=== PATIENT | female | born 1955 | race Caucasian/White ===

== ENCOUNTER → 2016-12-01 | Outpatient (CLI) | payer OTHER ==
--- NOTE | 2016-12-01 17:03 | MR ---
EXAMINATION TYPE: MR sacroiliac joints wo con DATE OF EXAM: 12/01/2016 4:31 PM COMPARISON: NONE HISTORY: Left Hip and Low Back and sacroiliac joint Pain Standard multiplanar, multisequence MRI departmental protocol Multiplanar, multisequence images of the pelvis focusing on the sacroiliac joints were acquired. FINDINGS: Sacroiliac joints appear symmetric and felt within normal limits. No suspicious edema is se en in the adjacent sacrum marrow iliac bones bilaterally. Bone marrow signal intensity is maintained. Visualized portion of sacrum shows no suspicious edema. Sacral alar intact bilaterally. Visualized portion of bladder is unremarkable. There is some prominence of fecal material in the sigm oid rectal colon. Within the visualized portion of uterus there is 2.3 cm low intense structure on ax ial image 1 consistent with intrauterine fibroid. Visualized portion of both ovaries is unremarkable. Tiny pelvic fluid collection is seen on axial image 1 in the cul-de-sac. IMPRESSION: Sacroiliac joints are within normal limits. Incidental note is made of 2.3 cm intrauterine fibroid an d moderate distal colonic fecal stasis.
--- NOTE | 2016-12-02 08:19 | MR ---
EXAMINATION TYPE: MR hip LT wo con DATE OF EXAM: 12/01/2016 4:31 PM COMPARISON: NONE HISTORY: Left Hip and Low Back Pain Standard multiplanar, multisequence MRI departmental protocol Multiplanar, multisequence images of the pelvis focusing on left hip were acquired. FINDINGS: Bone marrow signal intensity in the visualized pelvis including both proximal femurs appear s maintained. There are small to moderate-sized symmetric hip joint effusions noted bilaterally. Femo ral head shape is maintained. No significant spurring is seen. There is small subchondral cyst in the superior labrum right hip on coronal image 8. Increased fluid signal level of greater trochanter on the left is present on coronal image 8 confirme d on axial image 9. There is more focal 1.1 cm fluid collection anterior to this on axial image 10. N o suspicious fluid signal seen at level of lesser trochanter. No discrete labral tear is seen given l imitation of nonarthrogram study. Muscle bulk in left thigh is felt within normal limits and symmetric to opposite right side. No suspi cious groin adenopathy is present. No bowel or fat-containing inguinal hernia is seen bilaterally. Small moderate free fluid is seen in pelvis on axial image 18. There is 2.4 cm intramural fibroid not ed on axial image 18. IMPRESSION: Moderate to severe left-sided greater trochanteric bursitis.
== END | disposition home or self-care (01) ==
LOC: RADMRIMAIN 15:15
PROVIDERS: ATTEND Surgery Plastic and Reconstructive Surgery
DX: C47.2 Malignant neoplasm of peripheral nerves of lower limb, including hip (principal); M70.62 Trochanteric bursitis, left hip
CPT/HCPCS: 72195

== ENCOUNTER 2016-12-25 07:00 | Day surgery (SDC) | payer OTHER ==
[2016-12-23 13:11] VITALS: BMI 26.7
[~2016-12-25 07:00] MED LIST: LACTATED RINGERS 1,000 ML IV SCH
--- NOTE | 2016-12-25 07:23 | P.GSHP ---
History of Present Illness H&P Date: 12/25/16 CHIEF COMPLAINT: GERD HISTORY OF PRESENT ILLNESS: The patient is a 61-year-old female who presents reports gastroesophageal reflux disease. Upper endoscopy was offered for further evaluation and management. PAST MEDICAL HISTORY: Please see list. PAST SURGICAL HISTORY: Please see list. MEDICATIONS: Please see list. ALLERGIES: Please see list. SOCIAL HISTORY: No illicit drug use FAMILY HISTORY: No reports of Crohn disease or ulcerative colitis. REVIEW OF ORGAN SYSTEMS: CONSTITUTIONAL: No reports of fevers or chills. GI: Denies any blood in stools or constipation. PHYSICAL EXAM: VITAL SIGNS: Stable GENERAL: Well-developed and pleasant in no acute distress. HEENT: No scleral icterus. Extraocular movements grossly intact. Moist buccal mucosa. NECK: Supple without lymphadenopathy. CHEST: Unlabored respirations. Equal bilateral excursions. CARDIOVASCULAR: Regular rate and rhythm. Distal 2+ pulses. ABDOMEN: Soft, nondistended. MUSCULOSKELETAL: No clubbing, cyanosis, or edema. ASSESSMENT: 1. Gastroesophageal reflux disease PLAN: 1. Recommend proceeding with an upper endoscopy Past Medical History Past Medical History: Atrial Fibrillation Additional Past Medical History / Comment(s): ANEMIA, SOB WITH ACTIVITY, past hx. of a fib but not current, occasional epigastric pain, irritating cough History of Any Multi-Drug Resistant Organisms: None Reported Past Surgical History: Bariatric Surgery, Uterine Ablation Additional Past Surgical History / Comment(s): GASTRIC BYPASS, TUMMY TUCK, PARATHYROID removed, repair of hiatal hernia @[facility] 2016 Past Anesthesia/Blood Transfusion Reactions: Postoperative Nausea & Vomiting ( PONV) Past Psychological History: ADD/ADHD, Anxiety, Bipolar, Depression Additional Psychological History / Comment(s): borderline personality disorder Smoking Status: Never smoker Past Alcohol Use History: None Reported Past Drug Use History: None Reported - Past Family History Mother Family Medical History: COPD, Deep Vein Thrombosis (DVT), Myocardial Infarction ([place]) Medications and Allergies Home Medications Medication Instructions Recorded Confirmed Type DULoxetine HCL [Cymbalta] 120 mg PO HS 01/24/14 12/23/16 History Dextroamphetamine/Amphetamine 40 mg PO DAILY 01/24/14 12/23/16 History [Adderall] LORazepam [Ativan] 1 mg PO HS PRN 01/24/14 12/23/16 History QUEtiapine FUMARATE [SEROquel XR] 300 mg PO HS 01/24/14 12/23/16 History lamoTRIgine [LaMICtal] 200 mg PO BID 01/24/14 12/23/16 History Ergocalciferol (Vitamin D2) 50,000 unit PO WEEKLY 12/23/16 12/23/16 History [Vitamin D2] Allergies Allergy/AdvReac Type Severity Reaction Status Date / Time furosemide Allergy Unknown Rash/Hives Verified 12/23/16 12:27 diphenhydramine Allergy Dyspnea Verified 12/23/16 12:28
[2016-12-25 08:11] VITALS: TEMP 97.6
[2016-12-25] MEDS ORDERED: PROPOFOL 10 MG/ML 20 ML VIAL IV ONE (08:56)
--- NOTE | 2016-12-25 09:22 | P.PCN ---
Date of Procedure: 12/25/16 Description of Procedure: PREOPERATIVE DIAGNOSES: 1. Epigastric abdominal pain. 2. Nausea and vomiting. 3. History of Cody-en-Y gastric bypass 4. Dysphagia. POSTOPERATIVE DIAGNOSES: 1. Epigastric abdominal pain. 2. Nausea and vomiting. 3. History of Cody-en-Y gastric bypass 4. Esophageal dysmotility. 5. Dysphagia. PROCEDURE PERFORMED: Esophagogastrojejunoscopy. SURGEON: Shae Culver MD ANESTHESIA: MAC. INDICATIONS: The patient is a 61-year-old female with prior history of Cody-en-Y gastric bypass perform an outside institution. She presents with intermittent nausea and vomiting, particularly of the epigastric abdominal pain and dysphagia. With her history of Cody-en-Y gastric bypass, upper endoscopy was offered for further evaluation and management. Benefits and risks described. Informed consent was obtained. DESCRIPTION: Patient was brought to the endoscopy suite and laid in the left lateral decubitus position. After adequate IV sedation, a bite block was placed. An Olympus gastroscope was passed along the posterior oropharynx down to the distal esophagus where the squamocolumnar junction was found at approximately 35 cm from the incisors. Moderate dilated and tortuous esophagus was identified consistent with esophageal dysmotility. Tight entry along the lower esophageal sphincter was identified. The diaphragmatic hiatus was found at 38 cm from the incisors. Her anastomosis was found at 40 cm. Retained suture was found along the remnant of a very small gastric pouch. No gastrojejunal ulceration was encountered. The scope was passed to 60 cm of the Cody limb. The GI tract was desufflated. The patient tolerated the procedure well. FINDINGS: 1. Dilated and tortuous esophagus consistent with esophageal dysmotility. 2. Retained suture along remnant gastric pouch. 3. No acute gastrojejunal ulceration. 4. Hypertonic lower esophageal sphincter highly suspicious for hypertensive LES or achalasia. 5. Retained food along the remnant gastric pouch. PLAN: 1. Recommend immediate esophagram for high suspicion for esophageal dysmotility. 2. Upper endoscopy as needed. Plan - Discharge Summary Discharge Medication List DULoxetine HCL [Cymbalta] 120 mg PO HS 01/24/14 [History] Dextroamphetamine/Amphetamine [Adderall] 40 mg PO DAILY 01/24/14 [History] LORazepam [Ativan] 1 mg PO HS PRN 01/24/14 [History] QUEtiapine FUMARATE [SEROquel XR] 300 mg PO HS 01/24/14 [History] lamoTRIgine [LaMICtal] 200 mg PO BID 01/24/14 [History] Ergocalciferol (Vitamin D2) [Vitamin D2] 50,000 unit PO WEEKLY 12/23/16 [History ] Follow up Appointment(s)/Referral(s): Shae Culver MD [STAFF PHYSICIAN] - 12/29/16 Patient Instructions/Handouts: *[facility] - (Anesthesia) Endoscopy Discharge Instructions, Upper Endoscopy (DC), Chronic Dysphagia (GEN), Esophageal Spasm ( GEN) Discharge Disposition: HOME SELF-CARE
[2016-12-25 09:35] VITALS: BP 105/56; PULSE 54; RESP 18
--- NOTE | 2016-12-25 11:26 | FL ---
EXAMINATION TYPE: FL esophagus cervic/pharynx DATE OF EXAM: 12/25/2016 10:58 AM CLINICAL HISTORY: Dysphagia, achalasia COMPARISON: 01/26/2014 Contrast: Omnipaque 350 50 mL The patient ingested contrast without difficulty or delay. Esophagus is free of extrinsic or intrinsi c mass effect. There is No evidence for esophagitis. There is evidence of hiatal hernia with proximal component of the patient's gastric pouch residing above the level of the diaphragm. This is a new fi nding. There is resultant moderate reflux noted. IMPRESSION: 1. Interval development of hiatal hernia with a portion of the patient's gastric pouch residing above the level of the diaphragm with resultant reflux.
== END 2016-12-25 10:01 | disposition home or self-care (01) ==
LOC: ORWHC2ENDO 07:00
PROVIDERS: ATTEND Surgery Plastic and Reconstructive Surgery
DX: K22.4 Dyskinesia of esophagus (principal); K44.9 Diaphragmatic hernia without obstruction or gangrene; Z98.84 Bariatric surgery status; K21.9 Gastro-esophageal reflux disease without esophagitis; K22.0 Achalasia of cardia; F90.9 Attention-deficit hyperactivity disorder, unspecified type; F41.9 Anxiety disorder, unspecified; F31.9 Bipolar disorder, unspecified; F60.3 Borderline personality disorder; Z79.899 Other long term (current) drug therapy; Z88.8 Allergy status to other drugs, medicaments and biological substances
CPT/HCPCS: 74210; 43235; J2704; 71260

== ENCOUNTER → 2016-12-25 | Outpatient (CLI) | payer OTHER ==
--- NOTE | 2016-12-25 08:14 | CT ---
EXAMINATION TYPE: CT chest w con DATE OF EXAM: 12/25/2016 7:42 AM COMPARISON: NONE HISTORY: Lung nodule CT DLP: 317 mGycm Automated exposure control for dose reduction was used. CONTRAST: CT scan of the chest is performed with IV Contrast, patient injected with 100 mL of Omnipaque 300. Th ere is some dependent atelectasis at the lung bases. No parenchymal nodule is seen. There is no significant axillary, internal mammary or mediastinal adenopathy. There is a 3.2 x 2.4 x 5.8 cm mass adjacent to the left hilum. This has a mean Hounsfield value of 16 .4 which is nonspecific. A pericardial cyst or bronchogenic cyst could cause this. Adenopathy is not excluded. This is having some mass effect upon the left upper lobe pulmonary artery. There is no pleu ral or pericardial fluid. The heart is not enlarged. There is been a previous gastric stapling. There is a moderate hiatal hernia. There is fatty infiltration of the liver. Visualized portions of the upper abdomen are otherwise unre markable. No acute osseous lesion is seen. IMPRESSION: 1. 2.2 X 2.4 X 5.8 CM MASS ADJACENT TO THE LEFT HILUM. PERICARDIAL CYST VERSUS BRONCHOGENIC CYST IS F AVORED OVER ADENOPATHY. 2. POSTSURGICAL CHANGE. 3. FATTY INFILTRATION OF THE LIVER.
== END | disposition home or self-care (01) ==
LOC: RADCTMAIN 07:16
PROVIDERS: ATTEND Surgery Plastic and Reconstructive Surgery
DX: R91.8 Other nonspecific abnormal finding of lung field (principal); K76.0 Fatty (change of) liver, not elsewhere classified
CPT/HCPCS: 71260; Q9967

== ENCOUNTER → 2017-02-08 | Outpatient (CLI) | payer OTHER ==
[2017-02-08 16:21] LABS: Non-African American GFR(MDRD) >60 (>60 ml/min/1.73 sqM)
--- NOTE | 2017-02-09 09:17 | MR ---
EXAMINATION TYPE: MR chest wo/w con DATE OF EXAM: 02/08/2017 COMPARISON: NONE HISTORY: Per Pt. Mass on Left Lung...CT Chest 12/2016 CONTRAST: Standard multiplanar, multisequence MRI departmental protocol utilizing 15 mL intravenous MultiHance gadolinium contrast. FINDINGS: There is a fluid signal mass is noted adjacent to to the left suprahilar region measuring approximate ly 5.8 x 2.4 x 2.2 cm and the fails to enhance. This is felt to reflect bronchogenic cyst or pericard ial cyst. There is no evidence for adenopathy or additional mass. Thoracic aorta is of normal caliber . Small pleural effusions are noted bilaterally. The heart is not enlarged. The lungs are not ideally evaluated. IMPRESSION: 1. No bronchogenic cyst versus pericardial cyst. 2. Trace bilateral pleural effusions.
== END | disposition home or self-care (01) ==
LOC: RADMRIMAIN 15:53
PROVIDERS: ATTEND Internal Medicine Critical Care Medicine
DX: J90 Pleural effusion, not elsewhere classified (principal)
CPT/HCPCS: 82565; 71552; 36415; A9577

== ENCOUNTER 2017-03-26 19:08 | Emergency (ER) | payer OTHER ==
[2017-03-26] MEDS ORDERED: MAG HYDROX/AL HYDROX/SIMETH 30 ML CUP PO PRN (21:04)
[2017-03-26] MEDS ORDERED: SUCRALFATE 1 GM TAB PO STA (21:04)
[2017-03-26] MEDS ORDERED: FAMOTIDINE 20 MG/2 ML VIAL IV STA (21:04)
--- NOTE | 2017-03-26 21:13 | ED ---
Abdominal Pain HPI - General Chief Complaint: Abdominal Pain Stated Complaint: Abdominal pain and back pain Time Seen by Provider: 03/26/17 20:44 Source: patient Mode of arrival: ambulatory Limitations: no limitations - History of Present Illness Initial Comments: Patient is a 61-year-old female who presents with a chief complaint of abdominal pain. She has a history of gastric bypass, hiatal hernia, esophageal complications. The pain started yesterday, she states it is a dull ache in the pit of her stomach. It is worse with eating and drinking. She has not tried anything that has alleviated her symptoms. Timing is constant. On initial evaluation, vital signs are stable, patient appears be in no distress. MD Complaint: abdominal pain Onset/Timin -: days(s) Location: epigastric Radiation: back Migration to: no migration Severity: moderate Quality: aching, sharp Consistency: constant Improves With: nothing Worsens With: eating Associated Symptoms: denies other symptoms - Related Data Home Medications Medication Instructions Recorded Confirmed DULoxetine HCL [Cymbalta] 120 mg PO HS 01/24/14 03/26/17 Dextroamphetamine/Amphetamine 40 mg PO DAILY 01/24/14 03/26/17 [Adderall] LORazepam [Ativan] 1 mg PO HS PRN 01/24/14 03/26/17 QUEtiapine FUMARATE [SEROquel XR] 300 mg PO HS 01/24/14 03/26/17 lamoTRIgine [LaMICtal] 200 mg PO BID 01/24/14 03/26/17 QUEtiapine [SEROquel] 25 mg PO HS 03/26/17 03/26/17 Previous Rx's Medication Instructions Recorded Omeprazole Magnesium [Prilosec OTC] 20 mg PO DAILY #30 tablet. 03/27/17 Ranitidine HCl [Zantac] 150 mg PO BID #30 tab 03/27/17 Sucralfate [Carafate] 1 gm PO BID #30 ml 03/27/17 Allergies Allergy/AdvReac Type Severity Reaction Status Date / Time furosemide Allergy Unknown Rash/Hives Verified 03/26/17 21:14 diphenhydramine Allergy Dyspnea Verified 03/26/17 21:14 Review of Systems ROS Statement: Those systems with pertinent positive or pertinent negative responses have been documented in the HPI. ROS Other: All systems not noted in ROS Statement are negative. Constitutional: Denies: fever, chills Eyes: Denies: vision change ENT: Denies: ear pain, throat pain Respiratory: Denies: cough, dyspnea Cardiovascular: Denies: chest pain Endocrine: Denies: fatigue Gastrointestinal: Reports: abdominal pain. Denies: nausea, vomiting Genitourinary: Denies: dysuria Musculoskeletal: Reports: back pain Skin: Denies: rash Neurological: Denies: headache Psychiatric: Denies: anxiety Past Medical History Past Medical History: Atrial Fibrillation Additional Past Medical History / Comment(s): ANEMIA, SOB WITH ACTIVITY, past hx. of a fib but not current, occasional epigastric pain, irritating cough, left lung cyst History of Any Multi-Drug Resistant Organisms: None Reported Past Surgical History: Bariatric Surgery, Uterine Ablation Additional Past Surgical History / Comment(s): GASTRIC BYPASS, TUMMY TUCK, PARATHYROID removed, repair of hiatal hernia @[facility] 2016 Past Anesthesia/Blood Transfusion Reactions: Postoperative Nausea & Vomiting ( PONV) Past Psychological History: ADD/ADHD, Anxiety, Bipolar, Depression Smoking Status: Never smoker Past Alcohol Use History: None Reported Past Drug Use History: None Reported - Past Family History Mother Family Medical History: COPD, Deep Vein Thrombosis (DVT), Myocardial Infarction ([place]) General Exam Limitations: no limitations General appearance: alert, in no apparent distress Head exam: Present: atraumatic, normocephalic Eye exam: Present: normal appearance ENT exam: Present: normal exam, mucous membranes moist Neck exam: Present: normal inspection Respiratory exam: Present: normal lung sounds bilaterally. Absent: respiratory distress, wheezes Cardiovascular Exam: Present: regular rate, normal rhythm, normal heart sounds GI/Abdominal exam: Present: soft, tenderness. Absent: distended, bruit Rectal exam: Present: deferred Extremities exam: Present: normal inspection Back exam: Present: normal inspection. Absent: tenderness, CVA tenderness (R), CVA tenderness (L) Neurological exam: Present: alert, oriented X3 Psychiatric exam: Present: normal affect, normal mood Skin exam: Present: warm, dry, intact Course Vital Signs 03/26/17 03/26/17 19:31 23:56 Temperature 99.3 F 98 F Pulse Rate 80 68 Respiratory 18 16 Rate Blood Pressure 112/57 122/60 O2 Sat by Pulse 95 99 Oximetry Medical Decision Making - Medical Decision Making Patient presents with a chief complaint of abdominal pain. Her pain is epigastric in nature. History and physical examination are most consistent with gastritis versus gastric ulcer. Given patient's age, and complains of pleuritic pain we'll send d-dimer to evaluate for PE. Also troponins and get EKG however ACS is low on the differential. Patient was given a GI cocktail for symptomatic improvement. 12:25 AM Lab evaluation of this patient is unremarkable. D-dimer is negative, therefore PE is a very unlikely diagnosis. Troponin is negative. EKG performed at 9:25 PM shows normal sinus rhythm with PVCs. Ventricular rate is 60 bpm. Patient denies chest pain. Patient was given a GI cocktail, and states that her pain is somewhat better. He has a HEART score of 2 pitting this patient a low risk patient for cardiac etiology. At this time, it is likely the patient suffers from either gastritis, or possible ulcer. Patient was instructed to follow up with primary care, and GI as needed. Patient will be prescribed Prilosec, Zantac, Carafate. There is no imaging done today, the patient was instructed that if her symptoms worsen or change in anyway that she should return to the emergency department. She was given explicit instructions on signs and symptoms that should prompt return visit to the emergency department. At this time, patient is agreeable with care plan, is stable for discharge. Upon further conversation with the patient, she states that the last time she was seen by GI and had an upper endoscopy there is no the patient has existing gastritis. This is consistent with findings today. - Lab Data Result diagrams: 03/26/17 22:11 03/26/17 22:11 Lab Results 03/26/17 03/26/17 03/26/17 Range/Units 22:11 22:11 22:11 WBC 7.4 (3.8-10.6) k/uL RBC 3.57 L (3.80-5.40) m/uL Hgb 11.7 (11.4-16.0) gm/dL Hct 36.1 (34.0-46.0) % MCV 101.2 H (80.0-100.0) fL MCH 32.8 (25.0-35.0) pg MCHC 32.4 (31.0-37.0) g/dL RDW 13.8 (11.5-15.5) % Plt Count 243 (150-450) k/uL Neutrophils % 83 % Lymphocytes % 9 % Monocytes % 5 % Eosinophils % 1 % Basophils % 0 % Neutrophils # 6.1 (1.3-7.7) k/uL Lymphocytes # 0.7 L (1.0-4.8) k/uL Monocytes # 0.4 (0-1.0) k/uL Eosinophils # 0.1 (0-0.7) k/uL Basophils # 0.0 (0-0.2) k/uL Macrocytosis Slight D-Dimer 0.29 (<0.60) mg/L FEU Sodium 139 (137-145) mmol/L Potassium 4.2 (3.5-5.1) mmol/L Chloride 105 (98-107) mmol/L Carbon Dioxide 21 L (22-30) mmol/L Anion Gap 13 mmol/L BUN 14 (7-17) mg/dL Creatinine 0.70 (0.52-1.04) mg/dL Est GFR (MDRD) Af Amer >60 (>60 ml/min/1.73 sqM) Est GFR (MDRD) Non-Af >60 (>60 ml/min/1.73 sqM) Glucose 102 H (74-99) mg/dL Calcium 9.4 (8.4-10.2) mg/dL Total Bilirubin 0.6 (0.2-1.3) mg/dL AST 20 (14-36) U/L ALT 27 (9-52) U/L Alkaline Phosphatase 113 (38-126) U/L Troponin I (0.000-0.034) ng/mL Total Protein 6.4 (6.3-8.2) g/dL Albumin 3.9 (3.5-5.0) g/dL Lipase 25 (23-300) U/L 03/26/17 Range/Units 22:11 WBC (3.8-10.6) k/uL RBC (3.80-5.40) m/uL Hgb (11.4-16.0) gm/dL Hct (34.0-46.0) % MCV (80.0-100.0) fL MCH (25.0-35.0) pg MCHC (31.0-37.0) g/dL RDW (11.5-15.5) % Plt Count (150-450) k/uL Neutrophils % % Lymphocytes % % Monocytes % % Eosinophils % % Basophils % % Neutrophils # (1.3-7.7) k/uL Lymphocytes # (1.0-4.8) k/uL Monocytes # (0-1.0) k/uL Eosinophils # (0-0.7) k/uL Basophils # (0-0.2) k/uL Macrocytosis D-Dimer (<0.60) mg/L FEU Sodium (137-145) mmol/L Potassium (3.5-5.1) mmol/L Chloride (98-107) mmol/L Carbon Dioxide (22-30) mmol/L Anion Gap mmol/L BUN (7-17) mg/dL Creatinine (0.52-1.04) mg/dL Est GFR (MDRD) Af Amer (>60 ml/min/1.73 sqM) Est GFR (MDRD) Non-Af (>60 ml/min/1.73 sqM) Glucose (74-99) mg/dL Calcium (8.4-10.2) mg/dL Total Bilirubin (0.2-1.3) mg/dL AST (14-36) U/L ALT (9-52) U/L Alkaline Phosphatase (38-126) U/L Troponin I <0.012 (0.000-0.034) ng/mL Total Protein (6.3-8.2) g/dL Albumin (3.5-5.0) g/dL Lipase (23-300) U/L Disposition Clinical Impression: Abdominal pain Disposition: HOME SELF-CARE Condition: Good Instructions: Abdominal Pain (ED), Gastritis (ED) Referrals: Carl Ramirez MD [Primary Care Provider] - 1-2 days
[2017-03-26 22:22] LABS: Basophils % (A) 0 %; CH 33.5; CHCM 33.2; Eosinophils # (A) 0.1 k/uL (0-0.7); Eosinophils % (A) 1 %; HCT 36.1 % (34.0-46.0); HDW 2.48; HGB 11.7 gm/dL (11.4-16.0); Luc # (Auto) 0.13; Luc % (Auto) 2; Lymphocytes # (A) 0.7 k/uL (1.0-4.8); Lymphocytes % (A) 9 %; MCH 32.8 pg (25.0-35.0); MCHC 32.4 g/dL (31.0-37.0); MCV 101.2 fL (80.0-100.0); Macrocytosis Slight; Mean Platelet Volume 7.3; Monocytes # (A) 0.4 k/uL (0-1.0); Monocytes % (A) 5 %; Neutrophils # (A) 6.1 k/uL (1.3-7.7); Neutrophils % (A) 83 %; RBC 3.57 m/uL (3.80-5.40); RDW 13.8 % (11.5-15.5); WBC 7.4 k/uL (3.8-10.6); WBC (Perox) 7.96
[2017-03-26 22:32] LABS: ALT 27 U/L (9-52); AST 20 U/L (14-36); Alkaline Phosphatase 113 U/L (38-126); Anion Gap 13 mmol/L; Blood Urea Nitrogen 14 mg/dL (7-17); Calcium 9.4 mg/dL (8.4-10.2); Carbon Dioxide 21 mmol/L (22-30); Chloride 105 mmol/L (98-107); Glucose 102 mg/dL (74-99); Non-African American GFR(MDRD) >60 (>60 ml/min/1.73 sqM); Potassium 4.2 mmol/L (3.5-5.1); Sodium 139 mmol/L (137-145); Total Bilirubin 0.6 mg/dL (0.2-1.3); Total Protein 6.4 g/dL (6.3-8.2)
[2017-03-26 23:57] VITALS: RESP 16; TEMP 98
[2017-03-27 00:43] VITALS: BP 122/63; PULSE 70
== END 2017-03-27 00:42 | disposition home or self-care (01) ==
LOC: EC 19:08
DX: R10.13 Epigastric pain (principal); M54.9 Dorsalgia, unspecified; I49.3 Ventricular premature depolarization; F41.9 Anxiety disorder, unspecified; F90.9 Attention-deficit hyperactivity disorder, unspecified type; F31.9 Bipolar disorder, unspecified; Z79.899 Other long term (current) drug therapy; Z88.8 Allergy status to other drugs, medicaments and biological substances; Z98.84 Bariatric surgery status
CPT/HCPCS: 36415; 80053; 83690; 84484; 85025; 85379; 93005; 96374; 99284

== ENCOUNTER → 2017-04-02 | Day surgery (SDC) | payer OTHER ==
[2017-04-01 11:14] VITALS: BMI 24.1
[~2017-04-02] MED LIST changes: +LIDOCAINE 1% 20 ML VIAL (10MG/ML) FOR IV START INTRADERMA ONE; +LIDOCAINE 1% INJ 10MG/ML (20 ML MDV) ONE; +ONDANSETRON 4 MG/2 ML VIAL IVP ONE; +PROPOFOL 10 MG/ML 20 ML VIAL IV ONE
[2017-04-02 14:16] VITALS: TEMP 98
--- NOTE | 2017-04-02 14:58 | P.GSHP ---
History of Present Illness H&P Date: 04/02/17 CHIEF COMPLAINT: GERD HISTORY OF PRESENT ILLNESS: The patient is a 62-year-old female who presents reports gastroesophageal reflux disease. Upper endoscopy was offered for further evaluation and management. PAST MEDICAL HISTORY: Please see list. PAST SURGICAL HISTORY: Please see list. MEDICATIONS: Please see list. ALLERGIES: Please see list. SOCIAL HISTORY: No illicit drug use FAMILY HISTORY: No reports of Crohn disease or ulcerative colitis. REVIEW OF ORGAN SYSTEMS: CONSTITUTIONAL: No reports of fevers or chills. GI: Denies any blood in stools or constipation. PHYSICAL EXAM: VITAL SIGNS: Stable GENERAL: Well-developed and pleasant in no acute distress. HEENT: No scleral icterus. Extraocular movements grossly intact. Moist buccal mucosa. NECK: Supple without lymphadenopathy. CHEST: Unlabored respirations. Equal bilateral excursions. CARDIOVASCULAR: Regular rate and rhythm. Distal 2+ pulses. ABDOMEN: Soft, nondistended. MUSCULOSKELETAL: No clubbing, cyanosis, or edema. ASSESSMENT: 1. Gastroesophageal reflux disease PLAN: 1. Recommend proceeding with an upper endoscopy Past Medical History Past Medical History: Atrial Fibrillation Additional Past Medical History / Comment(s): "unable to eat having pain at the bottom of the sternum",ANEMIA, SOB WITH ACTIVITY, past hx. of a fib but not current, left lung cyst History of Any Multi-Drug Resistant Organisms: None Reported Past Surgical History: Bariatric Surgery, Uterine Ablation Additional Past Surgical History / Comment(s): GASTRIC BYPASS, TUMMY TUCK, PARATHYROID removed, repair of hiatal hernia @[facility] 2016 Past Anesthesia/Blood Transfusion Reactions: Postoperative Nausea & Vomiting ( PONV) Additional Past Anesthesia/Blood Transfusion Reaction / Comment(s): no hx blood transfusion Smoking Status: Never smoker - Past Family History Mother Family Medical History: Congestive Heart Failure (CHF), COPD, Deep Vein Thrombosis (DVT), Myocardial Infarction ([place]) Father History Unknown: Yes Medications and Allergies Home Medications Medication Instructions Recorded Confirmed Type DULoxetine HCL [Cymbalta] 120 mg PO HS 01/24/14 04/01/17 History Dextroamphetamine/Amphetamine 40 mg PO DAILY 01/24/14 04/02/17 History [Adderall] LORazepam [Ativan] 1 mg PO HS PRN 01/24/14 04/01/17 History QUEtiapine FUMARATE [SEROquel XR] 300 mg PO HS 01/24/14 04/01/17 History lamoTRIgine [LaMICtal] 200 mg PO BID 01/24/14 04/02/17 History QUEtiapine [SEROquel] 25 mg PO HS 03/26/17 04/01/17 History Multivitamins, Thera [Multivitamin 1 tab PO DAILY 04/01/17 04/01/17 History (formulary)] Allergies Allergy/AdvReac Type Severity Reaction Status Date / Time furosemide Allergy Unknown Rash/Hives Verified 04/01/17 10:16 diphenhydramine Allergy Dyspnea Verified 04/01/17 10:16 Surgical - Exam Vital Signs Temp Pulse Resp BP Pulse Ox 98.0 F 75 18 105/65 95 04/02/17 14:15 04/02/17 14:15 04/02/17 14:15 04/02/17 14:15 04/02/17 14:15
--- NOTE | 2017-04-02 15:20 | P.PCN ---
Date of Procedure: 04/02/17 Preoperative Diagnosis: Postoperative Diagnosis: Procedure(s) Performed: Implants: Indications for Procedure: Operative Findings: Description of Procedure: PREOPERATIVE DIAGNOSIS: Dysphagia. s/p Cody-en-y gastric bypass. Nausea with vomiting. POSTOPERATIVE DIAGNOSIS: Dysphagia. s/p Cody-en-y gastric bypass. Nausea with vomiting. Gastrojejunal stricture with chronic ulcer without perforation OPERATION: Esophagogastrojejunoscopy with balloon dilatation, 20 mm. SURGEON: Shae Culver MD ANESTHESIA: MAC. INDICATIONS: The patient is a 62-year-old female who presents with a history of dysphagia, gastric bypass including worsening nausea and vomiting. Benefits and risks of the procedure were described. Informed consent was obtained. DESCRIPTION: The patient was brought into the endoscopy suite and laid in the left lateral decubitus position. After a timeout was confirmed, the procedure was initiated. An Olympus gastroscope was passed along the posterior oropharynx down to the distal esophagus where the squamocolumnar junction was unremarkable. The gastric pouch was entered. An anatomical anomaly of her pouch was identified whereby the pouch was malrotated and twisted as in a swirl. A gastrojejunal stricture of 15 mm was found as the adult gastroscope was 9.5 mm in size. A [employer] balloon dilator was placed through the scope. Final insufflation up to 20 mm was performed with a total of 2 minutes. The scope was advanced up to 80 cm from the incisors into the Cody limb. The mucosa of the gastrojejunal anastomosis was intact. No chronic gastrojejunal marginal ulcer was encountered. No full-thickness injury was encountered. The GI tract was desufflated. The patient tolerated the procedure well. FINDINGS: Squamocolumnar junction unremarkable at 40 cm. Stricture of approximately 15 mm encountered. No chronic gastrojejunal ulceration encountered. Successful balloon dilatation to 20 mm. 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 RECOMMENDATIONS: Recommend surgical correction and revision of her surgery. Plan - Discharge Summary New Discharge Prescriptions: No Action LORazepam [Ativan] 1 mg PO HS PRN PRN Reason: Anxiety Dextroamphetamine/Amphetamine [Adderall] 40 mg PO DAILY lamoTRIgine [LaMICtal] 200 mg PO BID DULoxetine HCL [Cymbalta] 120 mg PO HS QUEtiapine FUMARATE [SEROquel XR] 300 mg PO HS QUEtiapine [SEROquel] 25 mg PO HS Multivitamins, Thera [Multivitamin (formulary)] 1 tab PO DAILY Discharge Medication List DULoxetine HCL [Cymbalta] 120 mg PO HS 01/24/14 [History] Dextroamphetamine/Amphetamine [Adderall] 40 mg PO DAILY 01/24/14 [History] LORazepam [Ativan] 1 mg PO HS PRN 01/24/14 [History] QUEtiapine FUMARATE [SEROquel XR] 300 mg PO HS 01/24/14 [History] lamoTRIgine [LaMICtal] 200 mg PO BID 01/24/14 [History] QUEtiapine [SEROquel] 25 mg PO HS 03/26/17 [History] Multivitamins, Thera [Multivitamin (formulary)] 1 tab PO DAILY 04/01/17 [History ]
[2017-04-02 15:23] VITALS: PULSE 59
[2017-04-02 16:23] VITALS: BP 115/78; RESP 18
--- NOTE | 2017-04-02 17:10 | CT ---
EXAMINATION TYPE: CT abdomen pelvis w con DATE OF EXAM: 04/02/2017 COMPARISON: NONE HISTORY: Upper Abdominal pain CT DLP: 736.6 mGycm Automated exposure control for dose reduction was used. TECHNIQUE: Helical acquisition of images was performed from the lung bases through the pelvis. CONTRAST: Performed with Oral Contrast and with IV Contrast, patient injected with 100 mL of Omnipaque 300. FINDINGS: There are small pleural effusions. There is hiatal hernia noted. There is previous gastric surgery no lexii. Spleen appears normal. There is no evidence of a pancreatic mass. Liver shows no focal defect. Gallbladder appears normal. Bile ducts are not dilated. There is no adrenal mass. Kidneys show satisfactory contrast opacification. There is no hydronephrosi s. There is no retroperitoneal adenopathy. Bladder distends smoothly. There is mild free fluid in the pelvis. Uterus is retroverted. There is probably a 3 cm uterine fibro id. I see no intestinal wall thickening. There is some retained gas and fecal material in the colon. There is first-degree L5 spondylolisthesis with left-sided L5 spondylolysis. There are some surgical clips in the left upper quadrant associated with small bowel. I see no evidence of diverticulitis. Ap pendix is not definitely seen. There is no sign of appendicitis. There is some bowel distortion in th e area of the surgery in the left upper quadrant. I see no sign of a mechanical bowel obstruction.. IMPRESSION: PREVIOUS SURGERY WITH INTESTINAL DISTORTION IN THE LEFT UPPER QUADRANT. NO EVIDENCE OF A MECHANICAL O BSTRUCTION. THERE IS LARGE BOWEL AIR CONSISTENT WITH LARGE BOWEL ILEUS. PREVIOUS GASTRIC SURGERY WITH HIATAL HERNIA. GASTROJEJUNOSTOMY. No evidence of diverticulitis. Mild f ree fluid in the cul-de-sac of uncertain clinical significance. L5 first degree spondylolisthesis. Small bilateral pleural effusions. There is also a 4 cm cystic fluid collection at the right cardiac border consistent with a pericardial cyst that is unchanged compared to CT scan of 12/25/2016.
== END | disposition home or self-care (01) ==
LOC: ORWHC2ENDO 13:05
PROVIDERS: ATTEND Surgery Plastic and Reconstructive Surgery
DX: K31.89 Other diseases of stomach and duodenum (principal); Q43.3 Congenital malformations of intestinal fixation; K56.69 Other intestinal obstruction; K44.9 Diaphragmatic hernia without obstruction or gangrene; Z98.84 Bariatric surgery status; J90 Pleural effusion, not elsewhere classified; M43.16 Spondylolisthesis, lumbar region; K21.9 Gastro-esophageal reflux disease without esophagitis; I48.91 Unspecified atrial fibrillation; F41.9 Anxiety disorder, unspecified; F31.9 Bipolar disorder, unspecified; Z79.899 Other long term (current) drug therapy; Z88.8 Allergy status to other drugs, medicaments and biological substances
CPT/HCPCS: 74177; 43245; J2405; J2001; Q9967; J2704; C1726; 44799

== ENCOUNTER → 2017-07-06 | Outpatient (CLI) | payer OTHER ==
--- NOTE | 2017-07-06 12:15 | CT ---
EXAMINATION TYPE: CT chest w con DATE OF EXAM: 07/06/2017 COMPARISON: 12/25/2016 HISTORY: Bronchogenic cyst CT DLP: 251.90 mGycm. Automated Exposure Control for Dose Reduction was Utilized. TECHNIQUE: CT scan of the thorax is performed following with IV Contrast, patient injected with 100 ml mL of Omnipaque 300. FINDINGS: LUNGS: The lungs are grossly clear, there is no concerning parenchymal mass or nodule identified. Mi nimal bibasilar subsegmental dependent atelectasis is noted. There is no pleural effusion or pneumoth orax seen. The tracheobronchial tree is patent. MEDIASTINUM: The known fluid attenuated cystic structure contiguous with the left superior pericardia l surface extending into the aorticopulmonary window is unchanged dating back to exam of 12/25/2016 me asuring approximately 5.7 x 3.8 x 2.2 cm (previously measuring 5.8 x 3.2 x 2.4 cm) measurements sligh tly differ given measurement technique and slice selection. A second similar fluid attenuated structu re is seen in the prevascular space measuring 3.0 x 1.0 x 1.7 cm, retrospectively unchanged from the prior study. There are no greater than 1 cm hilar or mediastinal lymph nodes. No pericardial effusi on is seen. OTHER: Within the upper abdomen there are postsurgical changes of the stomach with residual small hia aicha hernia. Mild dilatation of the non-slim limb is present. 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 Surveill ance is recommended as this could also relate to adenopathy although considered less likely. Second e longated similar-appearing anterior superior mediastinal mass is retrospectively also stable from the prior exam, fluid attenuated and may represent an additional pericardial cyst.
== END | disposition home or self-care (01) ==
LOC: RADCTMAIN 10:13
PROVIDERS: ATTEND Internal Medicine Critical Care Medicine
DX: J98.4 Other disorders of lung (principal); Z88.8 Allergy status to other drugs, medicaments and biological substances
CPT/HCPCS: 71260; Q9967

== ENCOUNTER → 2018-10-07 | Outpatient (CLI) | payer OTHER ==
[2018-10-07 12:11] LABS: Basophils % (A) 0 %; Eosinophils # (A) 0.1 k/uL (0-0.7); Eosinophils % (A) 3 %; HCT 39.2 % (34.0-46.0); HGB 12.9 gm/dL (11.4-16.0); Lymphocytes % (A) 27 %; MCH 32.8 pg (25.0-35.0); MCHC 32.9 g/dL (31.0-37.0); MCV 99.5 fL (80.0-100.0); Mean Platelet Volume 6.2; Monocytes # (A) 0.2 k/uL (0-1.0); Monocytes % (A) 6 %; Neutrophils # (A) 2.3 k/uL (1.3-7.7); Neutrophils % (A) 62 %; Platelet Count 252 k/uL (150-450); RBC 3.93 m/uL (3.80-5.40); RDW 13.1 % (11.5-15.5); WBC 3.7 k/uL (3.8-10.6)
[2018-10-07 12:18] LABS: Albumin 4.3 g/dL (3.5-5.0); Calcium 9.7 mg/dL (8.4-10.2); Total Bilirubin 0.6 mg/dL (0.2-1.3); Total Protein 6.9 g/dL (6.3-8.2)
[2018-10-07 12:20] LABS: Potassium 5.3 mmol/L (3.5-5.1)
--- NOTE | 2018-10-07 13:07 | CT ---
EXAMINATION TYPE: CT brain wo/w con DATE OF EXAM: 10/07/2018 COMPARISON: NONE HISTORY: Dizziness and frequent falls CT DLP: 1999.6 mGycm Automated Exposure Control for Dose Reduction was Utilized. TECHNIQUE: CT scan of the head is performed with IV contrast.,CT scan of the head is performed withou t and with without and with IV Contrast, patient injected with 100 mL of Isovue 300. FINDINGS: Noncontrast images show no acute intracranial hemorrhage or midline shift. No extra-axial fluid collection is seen. The ventricles and sulci are within normal limits in size. Cerebellar tons ils are noted to be low-lying. Postcontrast images show no suspicious enhancing intraparenchymal mass . The globes are intact and the visualized sinuses are clear. Old lacunar injury versus prominent per ivascular spaces seen with in the right insular cortex at the level of the inferior right lentiform n ucleus. IMPRESSION: Negative contrast enhanced head CT exam. No evidence of intracranial hemorrhage, midline shift or mass effect. No abnormal intracranial enhancement. MR could be utilized for increased sensi tivity of detecting white matter change.
[2018-10-07 17:40] LABS: Vitamin D 25 Hydroxy 25.4 ng/mL (30.0-100.0)
== END | disposition home or self-care (01) ==
LOC: RADCTMAIN 11:11
PROVIDERS: ATTEND Family Medicine
DX: R29.6 Repeated falls (principal); R41.3 Other amnesia; R26.89 Other abnormalities of gait and mobility; E55.9 Vitamin D deficiency, unspecified; D64.9 Anemia, unspecified; E53.8 Deficiency of other specified B group vitamins
CPT/HCPCS: 80053; 82607; 84443; 85025; 82306; 70470; 36415; Q9967

== ENCOUNTER → 2018-12-07 | Outpatient (CLI) | payer OTHER ==
[2018-12-07 19:51] LABS: T4, Free (Free Thyroxine) 0.7 ng/dL (0.80-1.80)
== END | disposition home or self-care (01) ==
LOC: LABWHC1 11:31
PROVIDERS: ATTEND Psychiatry & Neurology Neurology
DX: R41.3 Other amnesia (principal)
CPT/HCPCS: 36415; 84439; 84443

== ENCOUNTER → 2018-12-17 | Outpatient (CLI) | payer OTHER ==
--- NOTE | 2018-12-17 19:57 | MR ---
EXAMINATION TYPE: MR brain wo con DATE OF EXAM: 12/17/2018 COMPARISON: None HISTORY: Memory loss Standard multiplanar, multisequence MRI departmental protocol Multiplanar, multisequence images of the brain were acquired. Diffusion weighted imaging was performe d. FINDINGS: There is minimal cerebral atrophy. There is no mass effect nor midline shift. There is no s ign of intracranial hemorrhage. There is no evidence of cortical infarct. Delacruz-white matter structure s have fairly normal signal pattern. There is no evidence of cerebral edema. The brain stem is intact. Corpus callosum is intact. Sella turcica appears normal. I see no bony dest ructive process. There is no evidence of orbital mass. There is no evidence of cortical infarct. IMPRESSION: Brain appears fairly normal for age. Minimal atrophy.
== END | disposition home or self-care (01) ==
LOC: RADMRIMAIN 08:59
PROVIDERS: ATTEND Psychiatry & Neurology Neurology
DX: G31.9 Degenerative disease of nervous system, unspecified (principal)
CPT/HCPCS: 70551

== ENCOUNTER → 2019-01-04 | Outpatient (CLI) | payer OTHER ==
--- NOTE | 2019-01-04 15:45 | US ---
EXAMINATION TYPE: US thyroid st tissue head/neck DATE OF EXAM: 01/04/2019 COMPARISON: Ct chest CLINICAL HISTORY: R00.2 palpitations R63.5 weight gain R53.83 fatigue. Mediastinal mass/pericardial c yst GLAND SIZE: Right Lobe: 4.1 x 1.2 x 1.7 cm Overall Parenchyma: homogenous Left Lobe: 4.5 x 1.4 x 1.0 cm Overall Parenchyma: homogeneous Isthmus Thickness: 0.3 cm NODULES RIGHT: # of nodules measured on right: 0 LEFT: # of nodules measured on left: 0 ISTHMUS: # of nodules measured in the isthmus: 0 Bilateral neck scanned: no evidence of lymphadenopathy. Thyroid echotexture is homogenous and symmetric IMPRESSION: No discrete nodule.
== END | disposition home or self-care (01) ==
LOC: RADUSWWP 13:30
PROVIDERS: ATTEND Family Medicine
DX: R53.83 Other fatigue (principal); R00.2 Palpitations; R63.5 Abnormal weight gain
CPT/HCPCS: 76536

== ENCOUNTER → 2019-03-02 | Outpatient (CLI) | payer OTHER ==
[2019-03-03 00:08] LABS: T4, Free (Free Thyroxine) 0.6 ng/dL (0.80-1.80)
== END | disposition home or self-care (01) ==
LOC: LABWHC1 15:12
PROVIDERS: ATTEND Psychiatry & Neurology Neurology
DX: R26.81 Unsteadiness on feet (principal)
CPT/HCPCS: 36415; 82607; 84439; 84443

== ENCOUNTER → 2019-06-02 | Outpatient (CLI) | payer OTHER ==
--- NOTE | 2019-06-07 11:07 | P.ARTDOP ---
Arterial Doppler Upper extremity arterial Doppler: Date of exam: 06/02/2019 Reason for exam: Left forearm pain and numbness Doppler waveforms: Multiphasic throughout on the left Pressure measurements: No significant right to left or segmental gradients are noted. Impression: Normal limited exam. Clinical correlation recommended.
== END | disposition home or self-care (01) ==
LOC: RADUSWWP 12:43
PROVIDERS: ATTEND Nurse Practitioner Family
DX: M79.602 Pain in left arm (principal); R20.0 Anesthesia of skin; R20.9 Unspecified disturbances of skin sensation
CPT/HCPCS: 93922

== ENCOUNTER → 2019-06-02 | Outpatient (CLI) | payer OTHER ==
--- NOTE | 2019-06-04 09:30 | ECHOF ---
Referral Reason:R00.2 palpitations R63.5 weight gain R53.83 fatigu MEASUREMENTS -------- HEIGHT: 167.6 cm WEIGHT: 68.0 kg BP: 120/58 IVSd: 1.2 cm (0.6 - 1.1) LVIDd: 3.8 cm (3.9 - 5.3) LVPWd: 1.2 cm (0.6 - 1.1) IVSs: 1.4 cm LVIDs: 3.1 cm LVPWs: 1.5 cm LA Diam: 3.3 cm (2.7 - 3.8) RVIDd: 2.7 cm (< 3.3) LAESV Index (A-L): 25.61 ml/m Ao Diam: 3.0 cm (2.0 - 3.7) AV Cusp: 2.0 cm (1.5 - 2.6) EPSS: 0.3 cm MV E Eliel: 0.78 m/s MV DecT: 228 ms MV A Eliel: 0.59 m/s MV E/A Ratio: 1.32 RAP: 5.00 mmHg RVSP: 24.18 mmHg MV EF SLOPE: 117.15 mm/s (70 - 150) MV EXCURSION: 18.33 mm (> 18.000) TAPSE: 19.44 mm FINDINGS -------- Sinus rhythm. This was a technically good study. The left ventricular size is normal. There is borderline concentric left ventricular hypertrophy. Overall left ventricular systolic function is normal with, an EF between 60 - 65 %. The diastolic filling pattern is normal for the age of the patient 8.76. The right ventricle is normal in size. Normal LA size by volume 22+/-6 ml/m2. The right atrium is normal in size. Interatrial and interventricular septum intact. The aortic valve is trileaflet and appears structurally normal. The mitral valve is normal. Mild tricuspid regurgitation present. Right ventricular systolic pressure is normal at < 35 mmHg. Trace/mild (physiologic) pulmonic regurgitation. The aortic root size is normal. IVC Not well visulized. There is no pericardial effusion. CONCLUSIONS -------- 1. Sinus rhythm. 2. This was a technically good study. 3. The left ventricular size is normal. 4. There is borderline concentric left ventricular hypertrophy. 5. Overall left ventricular systolic function is normal with, an EF between 60 - 65 %. 6. The diastolic filling pattern is normal for the age of the patient 8.76 7. The right ventricle is normal in size. 8. Normal LA size by volume 22+/-6 ml/m2. 9. The right atrium is normal in size. 10. Interatrial and interventricular septum intact. 11. The aortic valve is trileaflet and appears structurally normal. 12. The mitral valve is normal. 13. Mild tricuspid regurgitation present. 14. Right ventricular systolic pressure is normal at < 35 mmHg. 15. Trace/mild (physiologic) pulmonic regurgitation. 16. The aortic root size is normal. 17. IVC Not well visulized. 18. There is no pericardial effusion. CLERK GUIDE: Lissa Herman RDCS
== END ==
LOC: RADECHMAIN 15:57
PROVIDERS: ATTEND Family Medicine
DX: I07.1 Rheumatic tricuspid insufficiency (principal); I37.1 Nonrheumatic pulmonary valve insufficiency
CPT/HCPCS: 93306

== ENCOUNTER 2019-11-03 11:11 | Emergency (ER) | payer OTHER ==
[2019-11-03 11:17] VITALS: TEMP 98.3
[2019-11-03] MEDS ORDERED: SODIUM CHLORIDE 0.9% 1,000 ML IV STA (11:44)
--- NOTE | 2019-11-03 11:50 | ED ---
SOB HPI - General Chief Complaint: Shortness of Breath Stated Complaint: cough, weakness Time Seen by Provider: 11/03/19 11:30 Source: patient, RN notes reviewed Mode of arrival: wheelchair Limitations: no limitations - History of Present Illness Initial Comments: This is a 64-year-old female with no prior history of COPD or asthma she has of history bronchitis in the past and is a nonsmoker who states she had the onset 5 days ago of a cough no fevers no chills no sweats she did have hemoptysis for 2 or 3 days which is since resolved in the last day or so no chest pain no nausea vomiting dizziness some rhinorrhea no earaches to have a slight sore throat this is since resolved. She complains some weakness. She does not use inhalers updrafts. No recent travel negative covid-19 screen MD Complaint: shortness of breath (,mnvc), cough - Related Data Home Medications Medication Instructions Recorded Confirmed DULoxetine HCL [Cymbalta] 120 mg PO HS 01/24/14 04/01/17 Dextroamphetamine/Amphetamine 40 mg PO DAILY 01/24/14 04/02/17 [Adderall] LORazepam [Ativan] 1 mg PO HS PRN 01/24/14 04/01/17 QUEtiapine FUMARATE [SEROquel XR] 300 mg PO HS 01/24/14 04/01/17 lamoTRIgine [LaMICtal] 200 mg PO BID 01/24/14 04/02/17 QUEtiapine [SEROquel] 25 mg PO HS 03/26/17 04/01/17 Multivitamins, Thera [Multivitamin 1 tab PO DAILY 04/01/17 04/01/17 (formulary)] Previous Rx's Medication Instructions Recorded Albuterol Inhaler [Ventolin Hfa 2 puff INHALATION Q6HR PRN #1 11/03/19 Inhaler] inhaler Allergies Allergy/AdvReac Type Severity Reaction Status Date / Time furosemide Allergy Unknown Rash/Hives Verified 04/01/17 10:16 diphenhydramine Allergy Dyspnea Verified 04/01/17 10:16 Review of Systems ROS Statement: Those systems with pertinent positive or pertinent negative responses have been documented in the HPI. ROS Other: All systems not noted in ROS Statement are negative. Past Medical History Past Medical History: Atrial Fibrillation Additional Past Medical History / Comment(s): ANEMIA, SOB WITH ACTIVITY, past hx. of a fib but not current, occasional epigastric pain, irritating cough, left lung cyst History of Any Multi-Drug Resistant Organisms: None Reported Past Surgical History: Bariatric Surgery, Uterine Ablation Additional Past Surgical History / Comment(s): GASTRIC BYPASS, TUMMY TUCK, PARATHYROID removed, repair of hiatal hernia @[facility] 2016 Past Anesthesia/Blood Transfusion Reactions: Postoperative Nausea & Vomiting (PONV) Additional Past Anesthesia/Blood Transfusion Reaction / Comment(s): no hx blood transfusion Past Psychological History: ADD/ADHD, Anxiety, Bipolar, Depression Smoking Status: Never smoker - Past Family History Mother Family Medical History: Congestive Heart Failure (CHF), COPD, Deep Vein Thrombosis (DVT), Myocardial Infarction (DC) Father History Unknown: Yes General Exam - General Exam Comments Initial Comments: This a well-developed well-nourished awake alert oriented 3 female Limitations: no limitations General appearance: alert, anxious Head exam: Present: atraumatic, normocephalic, normal inspection Eye exam: Present: normal appearance, PERRL, EOMI. Absent: scleral icterus, conjunctival injection, periorbital swelling ENT exam: Present: mucous membranes dry Neck exam: Present: normal inspection, full ROM, other (No stridor or bruits). Absent: tenderness, meningismus, lymphadenopathy Respiratory exam: Present: decreased breath sounds, other (Scattered wheezes that clear with coughing.). Absent: respiratory distress, wheezes, rales, rhonchi, stridor Cardiovascular Exam: Present: regular rate, normal rhythm, normal heart sounds. Absent: systolic murmur, diastolic murmur, rubs, gallop, clicks GI/Abdominal exam: Present: soft, normal bowel sounds. Absent: distended, tenderness, guarding, rebound, rigid Extremities exam: Present: normal inspection, full ROM, normal capillary refill. Absent: tenderness, pedal edema, joint swelling, calf tenderness Back exam: Present: normal inspection Neurological exam: Present: alert, oriented X3, CN II-XII intact Psychiatric exam: Present: normal affect, normal mood Skin exam: Present: warm, dry, intact, normal color. Absent: rash Course Vital Signs 11/03/19 11/03/19 11:14 12:00 Temperature 98.3 F Pulse Rate 64 61 Respiratory 16 15 Rate Blood Pressure 128/75 110/59 O2 Sat by Pulse 100 98 Oximetry Medical Decision Making - Medical Decision Making I did reevaluate patient on several occasions and did discuss findings with her. The presentation consistent with a viral bronchitis. She does have some evidence of anemia she just started taking iron recently. She will follow-up with her doctor did discuss the treatment at this time is likely viral in nature she will be placed on an inhaler and she demonstrate some evidence of bronchospa sm. Patient is in agreement with this - Lab Data Result diagrams: 11/03/19 11:43 11/03/19 11:43 Lab Results 11/03/19 11/03/19 11/03/19 Range/Units 11:43 11:43 11:43 WBC 2.8 L (3.8-10.6) k/uL RBC 4.15 (3.80-5.40) m/uL Hgb 11.3 L (11.4-16.0) gm/dL Hct 36.9 (34.0-46.0) % MCV 89.0 (80.0-100.0) fL MCH 27.2 (25.0-35.0) pg MCHC 30.6 L (31.0-37.0) g/dL RDW 16.1 H (11.5-15.5) % Plt Count 224 (150-450) k/uL Neutrophils % 53 % Lymphocytes % 33 % Monocytes % 7 % Eosinophils % 3 % Basophils % 0 % Neutrophils # 1.5 (1.3-7.7) k/uL Lymphocytes # 0.9 L (1.0-4.8) k/uL Monocytes # 0.2 (0-1.0) k/uL Eosinophils # 0.1 (0-0.7) k/uL Basophils # 0.0 (0-0.2) k/uL Hypochromasia Moderate Anisocytosis Slight PT 9.7 (9.0-12.0) sec INR 0.9 (<1.2) APTT 23.7 (22.0-30.0) sec D-Dimer 0.46 (<0.60) mg/L FEU Sodium 139 (137-145) mmol/L Potassium 4.5 (3.5-5.1) mmol/L Chloride 106 (98-107) mmol/L Carbon Dioxide 27 (22-30) mmol/L Anion Gap 6 mmol/L BUN 17 (7-17) mg/dL Creatinine 0.82 (0.52-1.04) mg/dL Est GFR (CKD-EPI)AfAm 88 (>60 ml/min/1.73 sqM) Est GFR (CKD-EPI)NonAf 77 (>60 ml/min/1.73 sqM) Glucose 96 (74-99) mg/dL Plasma Lactic Acid Frankie (0.7-2.0) mmol/L Calcium 9.1 (8.4-10.2) mg/dL Magnesium 2.0 (1.6-2.3) mg/dL Total Bilirubin 0.1 L (0.2-1.3) mg/dL AST 28 (14-36) U/L ALT 20 (4-34) U/L Alkaline Phosphatase 73 (38-126) U/L Creatine Kinase 79 (30-135) U/L Troponin I (0.000-0.034) ng/mL NT-Pro-B Natriuret Pep pg/mL Total Protein 6.5 (6.3-8.2) g/dL Albumin 3.9 (3.5-5.0) g/dL 11/03/19 11/03/19 11/03/19 Range/Units 11:43 11:43 11:43 WBC (3.8-10.6) k/uL RBC (3.80-5.40) m/uL Hgb (11.4-16.0) gm/dL Hct (34.0-46.0) % MCV (80.0-100.0) fL MCH (25.0-35.0) pg MCHC (31.0-37.0) g/dL RDW (11.5-15.5) % Plt Count (150-450) k/uL Neutrophils % % Lymphocytes % % Monocytes % % Eosinophils % % Basophils % % Neutrophils # (1.3-7.7) k/uL Lymphocytes # (1.0-4.8) k/uL Monocytes # (0-1.0) k/uL Eosinophils # (0-0.7) k/uL Basophils # (0-0.2) k/uL Hypochromasia Anisocytosis PT (9.0-12.0) sec INR (<1.2) APTT (22.0-30.0) sec D-Dimer (<0.60) mg/L FEU Sodium (137-145) mmol/L Potassium (3.5-5.1) mmol/L Chloride (98-107) mmol/L Carbon Dioxide (22-30) mmol/L Anion Gap mmol/L BUN (7-17) mg/dL Creatinine (0.52-1.04) mg/dL Est GFR (CKD-EPI)AfAm (>60 ml/min/1.73 sqM) Est GFR (CKD-EPI)NonAf (>60 ml/min/1.73 sqM) Glucose (74-99) mg/dL Plasma Lactic Acid Frankie 1.3 (0.7-2.0) mmol/L Calcium (8.4-10.2) mg/dL Magnesium (1.6-2.3) mg/dL Total Bilirubin (0.2-1.3) mg/dL AST (14-36) U/L ALT (4-34) U/L Alkaline Phosphatase (38-126) U/L Creatine Kinase (30-135) U/L Troponin I <0.012 (0.000-0.034) ng/mL NT-Pro-B Natriuret Pep 31 pg/mL Total Protein (6.3-8.2) g/dL Albumin (3.5-5.0) g/dL - Radiology Data Radiology results: report reviewed (I did review the imaging and report no acute findings are seen.), image reviewed Disposition Clinical Impression: Acute bronchitis, Bronchospasm Disposition: HOME SELF-CARE Condition: Good Instructions (If sedation given, give patient instructions): Bronchospasm (ED), Acute Bronchitis (ED) Prescriptions: Albuterol Inhaler [Ventolin Hfa Inhaler] 2 puff INHALATION Q6HR PRN #1 inhaler PRN Reason: Dyspnea Is patient prescribed a controlled substance at d/c from ED?: No Referrals: Carl Ramirez MD [Primary Care Provider] - 1-2 days
[2019-11-03 12:07] LABS: Anisocytosis Slight; Basophils % (A) 0 %; Eosinophils # (A) 0.1 k/uL (0-0.7); Eosinophils % (A) 3 %; HCT 36.9 % (34.0-46.0); HGB 11.3 gm/dL (11.4-16.0); Hypochromasia Moderate; Lymphocytes # (A) 0.9 k/uL (1.0-4.8); Lymphocytes % (A) 33 %; MCH 27.2 pg (25.0-35.0); MCHC 30.6 g/dL (31.0-37.0); Mean Platelet Volume 7.7; Monocytes # (A) 0.2 k/uL (0-1.0); Monocytes % (A) 7 %; Neutrophils # (A) 1.5 k/uL (1.3-7.7); Neutrophils % (A) 53 %; Platelet Count 224 k/uL (150-450); RBC 4.15 m/uL (3.80-5.40); RDW 16.1 % (11.5-15.5); WBC 2.8 k/uL (3.8-10.6)
--- NOTE | 2019-11-03 12:15 | XR ---
EXAMINATION TYPE: XR chest 2V DATE OF EXAM: 11/03/2019 COMPARISON: CT chest 07/06/2017 HISTORY: Difficulty breathing, shortness of breath and cough TECHNIQUE: Frontal and lateral views of the chest are obtained. FINDINGS: There is no focal air space opacity, pleural effusion, or pneumothorax seen. The cardiac silhouette size is within normal limits. Fullness in the left hilar region is consistent with patient 's history of bronchogenic cyst. The osseous structures are intact. Surgical clips present in the up per abdomen. IMPRESSION: No acute cardiopulmonary process.
[2019-11-03 12:19] LABS: Albumin 3.9 g/dL (3.5-5.0); Calcium 9.1 mg/dL (8.4-10.2); Potassium 4.5 mmol/L (3.5-5.1); Total Bilirubin 0.1 mg/dL (0.2-1.3); Total Protein 6.5 g/dL (6.3-8.2)
[2019-11-03 12:28] LABS: D-Dimer 0.46 mg/L FEU (<0.60); INR 0.9 (<1.2); Partial Thromboplastin Time 23.7 sec (22.0-30.0); Prothrombin Time 9.7 sec (9.0-12.0)
[2019-11-03 14:05] VITALS: BP 119/65; PULSE 54; RESP 18
== END 2019-11-03 14:09 | disposition home or self-care (01) ==
LOC: EC 11:11
DX: J20.9 Acute bronchitis, unspecified (principal); F41.9 Anxiety disorder, unspecified; F31.9 Bipolar disorder, unspecified; F90.9 Attention-deficit hyperactivity disorder, unspecified type; Z79.899 Other long term (current) drug therapy; Z88.8 Allergy status to other drugs, medicaments and biological substances; Z98.84 Bariatric surgery status
CPT/HCPCS: 36415; 71046; 80053; 82550; 83605; 83735; 83880; 84484; 85025; 85379; 85610; 85730; 87040; 93005; 96360; 96361; 99285

== ENCOUNTER 2020-04-24 20:50 | Emergency (ER) | payer OTHER ==
[2020-04-24] MEDS ORDERED: KETOROLAC 15 MG/ML 1 ML VIAL IVP STA (21:37)
[2020-04-24] MEDS ORDERED: ONDANSETRON 4 MG/2 ML VIAL IVP STA (21:37)
[2020-04-24] MEDS ORDERED: SODIUM CHLORIDE 0.9% 500 ML 500 ML IV STA (21:37)
[2020-04-24 22:01] LABS: Basophils % (A) 0 %; Eosinophils % (A) 1 %; HCT 39.6 % (34.0-46.0); HGB 12.9 gm/dL (11.4-16.0); Lymphocytes # (A) 0.7 k/uL (1.0-4.8); Lymphocytes % (A) 12 %; MCH 32.1 pg (25.0-35.0); MCHC 32.6 g/dL (31.0-37.0); MCV 98.5 fL (80.0-100.0); Mean Platelet Volume 7.1; Monocytes # (A) 0.3 k/uL (0-1.0); Monocytes % (A) 4 %; Neutrophils # (A) 4.9 k/uL (1.3-7.7); Neutrophils % (A) 82 %; Platelet Count 247 k/uL (150-450); RBC 4.02 m/uL (3.80-5.40); RDW 12.9 % (11.5-15.5)
[2020-04-24 22:11] LABS: ALT 12 U/L (4-34); AST 19 U/L (14-36); African American GFR (CKD) >90 (>60 ml/min/1.73 sqM); Albumin 4.2 g/dL (3.5-5.0); Alkaline Phosphatase 90 U/L (38-126); Anion Gap 7 mmol/L; Blood Urea Nitrogen 16 mg/dL (7-17); Calcium 9.9 mg/dL (8.4-10.2); Carbon Dioxide 26 mmol/L (22-30); Chloride 103 mmol/L (98-107); Glucose 114 mg/dL (74-99); Non-African American GFR(CKD) 81 (>60 ml/min/1.73 sqM); Potassium 4.3 mmol/L (3.5-5.1); Sodium 136 mmol/L (137-145); Total Bilirubin 0.4 mg/dL (0.2-1.3); Total Protein 6.5 g/dL (6.3-8.2)
[2020-04-24 22:19] LABS: Appearance,Urine Cloudy (Clear); Bacteria,Urine Occasional /hpf; Bilirubin,Urine Negative (Negative); Blood,Urine Negative (Negative); Color,Urine Yellow; Glucose,Urine (UA) Negative (Negative); Ketones,Urine Negative (Negative); Leukocyte Esterase,Urine Moderate (Negative); Mucus,Urine Many /hpf; Nitrite,Urine Negative (Negative); Protein,Urine Trace (Negative); RBC,Urine 3 /hpf (0-5); Specific Gravity,Urine 1.026 (1.001-1.035); Squamous Epithelial Cell,Urine 10 /hpf (0-4); Urobilinogen,Urine <2.0 mg/dL (<2.0); WBC,Urine 18 /hpf (0-5)
--- NOTE | 2020-04-24 22:49 | CT ---
EXAMINATION TYPE: CT abdomen pelvis wo con DATE OF EXAM: 04/24/2020 COMPARISON: 04/02/2017 HISTORY: left flank pain CT DLP: 644 mGycm Automated exposure control for dose reduction was used. Images were obtained from the diaphragm to the floor the pelvis with no contrast. There is partially visualized 3.5 cm rounded fluid density at the left cardiac border that could be pericardial cyst unc hanged. There is mild atelectasis at the posterior lung bases. There is moderate-sized hiatal hernia. There is previous gastric bypass surgery. There are numerous surgical clips. Liver shows no focal de fect. Gallbladder is intact. Spleen appears normal. There is no evidence of pancreatic mass. There is some pancreatic atrophy. There is no adrenal mass. There is bilateral multiple renal parapelvic cysts. Ureters are not dilated . There is no retroperitoneal adenopathy. Bladder distends smoothly. There is no definite free fluid in the pelvis. There is no inguinal hernia. There is no mesenteric edema. There is no ascites or free air. There is no evidence of bowel obstruction. Appendix is posterior and appears normal. There is a minimal L5-S1 spondylolisthesis. There is left-sided L5 spondylolysis. There is no evidenc e of focal bone destruction. There is 5% wedging of T11 vertebra that is new compared to old exam. The bony pelvis is intact. The hip joints are intact. IMPRESSION: Mild subsegmental atelectasis at the lung bases. Unchanged. Probable left side pericardial cyst. No evidence of any significant renal stone or obstruction. Previous bariatric surgery. Hiatal hernia. Normal appendix. There is a new mild compression fracture of T11 compared to old exam.
--- NOTE | 2020-04-24 22:54 | ED ---
General Adult HPI - General Chief complaint: Back Pain/Injury Stated complaint: Lower Back Pain Time Seen by Provider: 04/24/20 21:16 Source: patient Limitations: no limitations - History of Present Illness Initial comments: Patient is a 65-year-old female presenting to the emergency Department with complaints of left-sided flank pain has been ongoing for 4-5 days now. Patient states she does have a history of kidney stones and this feels similar. She denies history of back pain. She states she went to [facility] 2 days ago and was evaluated with some blood work and urine as well as abdominal x-ray states they told her she was constipated and sent her home. Patient states she's been continuing to have intermittent very sharp left flank pain. She is also nauseous on occasion. She feels like she has had increase in urinary frequency as well. She denies any hematuria. Denies any fever, chills, chest pain or shortness of breath. She has no further complaints at this time. Upon arrival to the ER, her vitals are stable. - Related Data Home Medications Medication Instructions Recorded Confirmed DULoxetine HCL [Cymbalta] 120 mg PO HS 01/24/14 04/01/17 Dextroamphetamine/Amphetamine 40 mg PO DAILY 01/24/14 04/02/17 [Adderall] LORazepam [Ativan] 1 mg PO HS PRN 01/24/14 04/01/17 QUEtiapine FUMARATE [SEROquel XR] 300 mg PO HS 01/24/14 04/01/17 lamoTRIgine [LaMICtal] 200 mg PO BID 01/24/14 04/02/17 QUEtiapine [SEROquel] 25 mg PO HS 03/26/17 04/01/17 Multivitamins, Thera [Multivitamin 1 tab PO DAILY 04/01/17 04/01/17 (formulary)] Previous Rx's Medication Instructions Recorded Albuterol Inhaler (Mhu) [Ventolin 2 puff INHALATION Q6HR PRN #1 11/03/19 Hfa Inhaler (Mhu)] inhaler Cephalexin [Keflex] 500 mg PO BID 5 Days #10 cap 04/24/20 Ibuprofen [Motrin] 600 mg PO Q8HR PRN #30 tab 04/24/20 methocarbamoL [Robaxin] 500 mg PO TID PRN #15 tab 04/24/20 Allergies Allergy/AdvReac Type Severity Reaction Status Date / Time furosemide Allergy Unknown Rash/Hives Verified 04/24/20 21:11 Review of Systems ROS Statement: Those systems with pertinent positive or pertinent negative responses have been documented in the HPI. ROS Other: All systems not noted in ROS Statement are negative. Past Medical History Past Medical History: Atrial Fibrillation Additional Past Medical History / Comment(s): ANEMIA, SOB WITH ACTIVITY, past hx. of a fib but not current, occasional epigastric pain, irritating cough, left lung cyst History of Any Multi-Drug Resistant Organisms: None Reported Past Surgical History: Bariatric Surgery, Uterine Ablation Additional Past Surgical History / Comment(s): GASTRIC BYPASS, TUMMY TUCK, P ARATHYROID removed, repair of hiatal hernia @[place] 2016 Past Anesthesia/Blood Transfusion Reactions: Postoperative Nausea & Vomiting (PONV) Additional Past Anesthesia/Blood Transfusion Reaction / Comment(s): no hx blood transfusion Past Psychological History: ADD/ADHD, Anxiety, Bipolar, Depression Smoking Status: Never smoker Past Alcohol Use History: None Reported Past Drug Use History: None Reported - Past Family History Mother Family Medical History: Congestive Heart Failure (CHF), COPD, Deep Vein Thrombosis (DVT), Myocardial Infarction ([place]) Father History Unknown: Yes General Exam - General Exam Comments Initial Comments: GENERAL: Patient is well-developed and well-nourished. Patient is nontoxic and in no acute distress. HEAD: Atraumatic, normocephalic. EYES: Pupils equal round and reactive to light, extraocular movements intact, sclera anicteric, conjunctiva are normal. Eyelids were unremarkable. ENT: TMs normal, nares patent, oropharynx clear without exudates. Moist mucous membranes. NECK: Normal range of motion, supple without lymphadenopathy or JVD. LUNGS: Unlabored respirations. Breath sounds clear to auscultation bilaterally and equal. No wheezes rales or rhonchi. HEART: Regular rate and rhythm without murmurs, rubs or gallops. ABDOMEN: Soft, nontender, normoactive bowel sounds. No guarding, no rebound. No masses appreciated. No flank pain. : Deferred MUSCULOSKELETAL: Normal extremities with adequate strength and normal range of motion, no pitting or edema. No clubbing or cyanosis. NEUROLOGICAL: Patient is alert and oriented x 3. Motor and sensory are also intact. Cranial nerves II through XII grossly intact. Symmetrical smile. Normal speech, normal gait. PSYCH: Normal mood, normal affect. SKIN: Warm, Dry, normal turgor, no rashes or lesions noted. Limitations: no limitations Course Vital Signs 04/24/20 04/24/20 21:07 22:55 Temperature 99.2 F 98.1 F Pulse Rate 70 65 Respiratory 20 18 Rate Blood Pressure 165/96 153/84 O2 Sat by Pulse 97 98 Oximetry Medical Decision Making - Medical Decision Making Patient is a 65-year-old female, history kidney stones, presenting with left- sided flank pain has been increasing over the past 3-4 days. She is associated nausea, no vomiting, no fever. Her vitals are stable here. Patient is not tender on exam of her abdomen or flank area. Patient's labs are unremarkable, normal white count, normal kidney function. Her urine does have 18 wbc's, occasional bacteria, no blood. CT of the abdomen shows a probable left-sided pericardial cyst that is unchanged compared to last exam, no evidence of renal stone or obstruction, there is a new mild compression fracture of T11 compared to old exam. I discussed these findings with the patient. Her pain could be coming from the new compression fracture or may be some renal colic. I will give patient prescription for ibuprofen 600 as well as a trial of a muscle relaxer and an antibiotic to treat her UTI. Patient will follow up with her PCP. She is in agreement with this plan of care and she is stable for discharge. Return parameters were discussed with the patient and she verbalized understanding. - Lab Data Result diagrams: 04/24/20 21:44 04/24/20 21:44 Lab Results 04/24/20 04/24/20 04/24/20 Range/Units 21:44 21:44 21:44 WBC 6.0 (3.8-10.6) k/uL RBC 4.02 (3.80-5.40) m/uL Hgb 12.9 (11.4-16.0) gm/dL Hct 39.6 (34.0-46.0) % MCV 98.5 (80.0-100.0) fL MCH 32.1 (25.0-35.0) pg MCHC 32.6 (31.0-37.0) g/dL RDW 12.9 (11.5-15.5) % Plt Count 247 (150-450) k/uL Neutrophils % 82 % Lymphocytes % 12 % Monocytes % 4 % Eosinophils % 1 % Basophils % 0 % Neutrophils # 4.9 (1.3-7.7) k/uL Lymphocytes # 0.7 L (1.0-4.8) k/uL Monocytes # 0.3 (0-1.0) k/uL Eosinophils # 0.0 (0-0.7) k/uL Basophils # 0.0 (0-0.2) k/uL Sodium 136 L (137-145) mmol/L Potassium 4.3 (3.5-5.1) mmol/L Chloride 103 (98-107) mmol/L Carbon Dioxide 26 (22-30) mmol/L Anion Gap 7 mmol/L BUN 16 (7-17) mg/dL Creatinine 0.78 (0.52-1.04) mg/dL Est GFR (CKD-EPI)AfAm >90 (>60 ml/min/1.73 sqM) Est GFR (CKD-EPI)NonAf 81 (>60 ml/min/1.73 sqM) Glucose 114 H (74-99) mg/dL Calcium 9.9 (8.4-10.2) mg/dL Total Bilirubin 0.4 (0.2-1.3) mg/dL AST 19 (14-36) U/L ALT 12 (4-34) U/L Alkaline Phosphatase 90 (38-126) U/L Total Protein 6.5 (6.3-8.2) g/dL Albumin 4.2 (3.5-5.0) g/dL Urine Color Yellow Urine Appearance Cloudy H (Clear) Urine pH 6.0 (5.0-8.0) Ur Specific [place] 1.026 (1.001-1.035) Urine Protein Trace H (Negative) Urine Glucose (UA) Negative (Negative) Urine Ketones Negative (Negative) Urine Blood Negative (Negative) Urine Nitrite Negative (Negative) Urine Bilirubin Negative (Negative) Urine Urobilinogen <2.0 (<2.0) mg/dL Ur Leukocyte Esterase Moderate H (Negative) Urine RBC 3 (0-5) /hpf Urine WBC 18 H (0-5) /hpf Ur Squamous Epith Cells 10 H (0-4) /hpf Urine Bacteria Occasional H (None) /hpf Urine Mucus Many H (None) /hpf Disposition Clinical Impression: Left flank pain, UTI (urinary tract infection), Thoracic compression fracture Disposition: HOME SELF-CARE Condition: Stable Instructions (If sedation given, give patient instructions): Acute Low Back Pain (ED) Additional Instructions: Please return to the Emergency Department if symptoms worsen or any other concerns. Take antibiotic as prescribed for UTI. Trial of muscle relaxer and ibuprofen for back discomfort. If symptoms persist follow-up with PCP as discussed. Prescriptions: Cephalexin [Keflex] 500 mg PO BID 5 Days #10 cap Ibuprofen [Motrin] 600 mg PO Q8HR PRN #30 tab PRN Reason: Pain methocarbamoL [Robaxin] 500 mg PO TID PRN #15 tab PRN Reason: muscle spasms Is patient prescribed a controlled substance at d/c from ED?: No Referrals: Carl Ramirez MD [Primary Care Provider] - 1-2 days
[2020-04-24 22:56] VITALS: BP 153/84; PULSE 65; RESP 18; TEMP 98.1
[2020-04-24] MEDS ORDERED: ONDANSETRON 4 MG ODT STARTER PACK 2 TAB BTL PO STA (23:02)
== END 2020-04-24 23:26 | disposition home or self-care (01) ==
LOC: EC 20:50
DX: N39.0 Urinary tract infection, site not specified (principal); M48.54XA Collapsed vertebra, not elsewhere classified, thoracic region, initial encounter for fracture; F41.9 Anxiety disorder, unspecified; F31.9 Bipolar disorder, unspecified; F90.9 Attention-deficit hyperactivity disorder, unspecified type; Z79.899 Other long term (current) drug therapy; Z88.8 Allergy status to other drugs, medicaments and biological substances; X58.XXXA Exposure to other specified factors, initial encounter
CPT/HCPCS: 36415; 80053; 85025; 81001; 87086; 74176; 99284; 96374; 96375; 96361 ×2; J2405; J1885; S0119

== ENCOUNTER → 2020-05-20 | Outpatient (CLI) | payer OTHER ==
--- NOTE | 2020-05-20 13:04 | CT ---
EXAMINATION TYPE: CT lumbar spine wo con DATE OF EXAM: 05/20/2020 12:58 PM COMPARISON: none HISTORY: Lumbago with sciatica. CT DLP: 986 mGycm Automated exposure control for dose reduction was used. Unenhanced CT of the lumbar spine was performed. Bone and soft tissue window settings are submitted as well as coronal and sagittal reconstructions. L1-L2: Mild degenerative disc space narrowing. Small right paracentral disc protrusion effaces the ve ntral thecal sac. No evidence for central stenosis or lateral recess stenosis. No foraminal encroachm ent. L2-L3: Normal disc space height. No disc herniation protrusion or central stenosis. No facet joint arthropathy. No evidence for foraminal encroachment. L3-L4: Normal disc space height. No disc herniation protrusion or central stenosis. No facet joint arthropathy. No evidence for foraminal encroachment. L4-L5: Moderate disc space narrowing with posterior disc bulge effacing the ventral thecal sac. There is bilateral lateral recess stenosis. Far lateral into the left disc herniation is difficult to excl ude with left foraminal encroachment. No evidence for central stenosis at this time. L5-S1: There is severe disc desiccation with vacuum disks noted. Grade 1 anterolisthesis L5 on S1 reece suring approximately 6 mm. There is bilateral spondylolysis. Posterior disc bulge with distortion of the thecal sac. No evidence for central stenosis. Left-sided foraminal encroachment identified. IMPRESSION: 1. Multilevel degenerative disc space narrowing is noted. 2. Bilateral lateral recess stenosis at L4-5. Far lateral and to the left disc herniation at this lev el is difficult to exclude. Correlate clinically. 3. Severe disc desiccation L5-S1 with grade 1 anterolisthesis as noted above.
== END | disposition home or self-care (01) ==
LOC: RADCTMAIN 12:28
PROVIDERS: ATTEND Orthopaedic Surgery
DX: M99.73 Connective tissue and disc stenosis of intervertebral foramina of lumbar region (principal); M48.061 Spinal stenosis, lumbar region without neurogenic claudication; M51.26 Other intervertebral disc displacement, lumbar region; M43.17 Spondylolisthesis, lumbosacral region
CPT/HCPCS: 72131

== ENCOUNTER → 2020-05-24 | Outpatient (CLI) | payer OTHER ==
--- NOTE | 2020-05-24 20:16 | MR ---
EXAMINATION TYPE: MR lumbar spine wo/w con DATE OF EXAM: 05/24/2020 COMPARISON: CT lumbar spine 05/20/2020 HISTORY: Low back pain TECHNIQUE: Multiplanar, multisequence images of the lumbar spine were acquired without and with administration o f 7 mL intravenous Gadavist contrast. Spinal alignment is normal. T11 superior endplate vertebral body Schmorl's node deformity. Vertebral body heights are preserved. Vertebral bone marrow is normal in signal. Multilevel degenerative disc disease, as described by level below. Diffuse facet arthropathy. Diffuse disc desiccation. Lower thoracic cord is normal in signal. Conus terminates normally at T12-L1. Caud a equina nerve roots are normal in course and caliber. Paraspinal soft tissues are unremarkable. Visualized upper sacroiliac joints appear intact. Numerous peripelvic renal cysts. No hydronephrosis. T12-L1: Right central and subarticular disc protrusion effaces the ventral aspect of the right thecal sac. No canal stenosis. Foramina are patent bilaterally. L1-L2: Right central disc protrusion effaces the ventral thecal sac. No canal stenosis. Foramina are patent bilaterally. L2-L3: No posterior disc herniation, protrusion, or bulging. No canal stenosis. Foramina are patent b ilaterally. L3-L4: Mild circumferential disc bulge effaces the ventral aspect of the thecal sac. No canal stenosi s. Foramina are patent bilaterally. L4-L5: Mild posterior disc bulge effaces the ventral aspect of the thecal sac. No canal stenosis. For margoth are mildly narrowed on the left. L5-S1: Disc space narrowing. Grade 1 anterolisthesis of L5 on S1. No canal stenosis. Foramina are mod erately narrowed bilaterally. Right-sided juxta-articular synovial cysts are seen anteriorly and post eriorly. No mass effect on the exiting L5 nerve root in the region of the anterior synovial cyst. IMPRESSION: 1. Multilevel degenerative changes with no canal stenosis. Mild to moderate neural foramina narrowin g of the inferior lumbosacral spine as above. 2. Numerous peripelvic renal cysts. No hydronephrosis.
== END | disposition home or self-care (01) ==
LOC: RADMRIMAIN 13:25
PROVIDERS: ATTEND Orthopaedic Surgery
DX: M48.07 Spinal stenosis, lumbosacral region (principal); M47.816 Spondylosis without myelopathy or radiculopathy, lumbar region
CPT/HCPCS: 72158

== ENCOUNTER 2020-05-25 15:29 | Emergency (ER) | payer OTHER ==
[2020-05-25 15:40] VITALS: TEMP 97.6
[2020-05-25] MEDS ORDERED: HYDROmorphone 1 MG/ML 1 ML SYRINGE IVP STA ×2 (15:59→16:35)
[2020-05-25] MEDS ORDERED: PROPOFOL 10 MG/ML 20 ML VIAL IV ONE (16:34)
--- NOTE | 2020-05-25 16:46 | XR ---
EXAMINATION TYPE: XR humerus LT DATE OF EXAM: 05/25/2020 COMPARISON: NONE HISTORY: Pain TECHNIQUE: 5 views FINDINGS: There is anterior dislocation of the humeral neck. The elbow joint appears intact. Soft tis sues appear normal. There is no evidence for fracture. IMPRESSION: Anterior dislocation of the shoulder joint.
--- NOTE | 2020-05-25 16:47 | XR ---
EXAMINATION TYPE: XR shoulder complete LT DATE OF EXAM: 05/25/2020 COMPARISON: NONE HISTORY: Pain TECHNIQUE: 2 views FINDINGS: There is anterior dislocation of the glenohumeral joint. There is no fracture line seen. Le ft upper ribs are intact. IMPRESSION: Anterior shoulder joint dislocation.
[2020-05-25] MEDS ORDERED: ONDANSETRON 4 MG/2 ML VIAL IVP STA (16:52)
--- NOTE | 2020-05-25 18:17 | XR ---
EXAMINATION TYPE: XR shoulder limited LT DATE OF EXAM: 05/25/2020 COMPARISON: Today HISTORY: Post reduction TECHNIQUE: Single view FINDINGS: There is anatomic reduction of the glenohumeral joint. I see no fracture. IMPRESSION: Anatomic reduction. No fracture seen.
--- NOTE | 2020-05-25 18:18 | XR ---
EXAMINATION TYPE: XR shoulder limited LT DATE OF EXAM: 05/25/2020 COMPARISON: NONE HISTORY: Post reduction TECHNIQUE: Single view FINDINGS: There is anatomic reduction of the glenohumeral joint. No fracture line seen. IMPRESSION: No fracture seen. No complicating process.
--- NOTE | 2020-05-25 18:24 | ED ---
Fall HPI <Luc Rueda - Last Filed: 05/31/20 16:07> - General Source: patient Mode of arrival: wheelchair <Silvia Jolly - Last Filed: 06/04/20 15:35> - General Chief Complaint: Fall Stated Complaint: fall 10 ft Time Seen by Provider: 05/25/20 15:44 - History of Present Illness Initial Comments: Patient is a 65-year-old female with past nuchal history of A. fib who presents to the emergency department after she fell off a ladder. Patient reports that she fell from a distance of approximately 8 feet and landed on her left shoulder. Patient denies any head injury or neck pain. She does have ecchymosis to her left chin and states that she hit it on one of the steps of the ladder. She denies losing consciousness. Does not take any blood thinners. His only reporting to pain in the left shoulder. She is refusing c-collar or any other imaging that does not have to do with the shoulder. Denies any back or flank pain. No abdominal pain. No weakness in her lower extremity's. Patient is able to wiggle her fingers but does have extreme pain. She denies any numbness or tingling into her hand. No other alleviating, precipitating or modifying factors (Silvia oJlly) - Related Data Home Medications Medication Instructions Recorded Confirmed DULoxetine HCL [Cymbalta] 120 mg PO HS 01/24/14 04/01/17 Dextroamphetamine/Amphetamine 40 mg PO DAILY 01/24/14 04/02/17 [Adderall] LORazepam [Ativan] 1 mg PO HS PRN 01/24/14 04/01/17 QUEtiapine FUMARATE [SEROquel XR] 300 mg PO HS 01/24/14 04/01/17 lamoTRIgine [LaMICtal] 200 mg PO BID 01/24/14 04/02/17 QUEtiapine [SEROquel] 25 mg PO HS 03/26/17 04/01/17 Multivitamins, Thera [Multivitamin 1 tab PO DAILY 04/01/17 04/01/17 (formulary)] Previous Rx's Medication Instructions Recorded Albuterol Inhaler (Mhu) [Ventolin 2 puff INHALATION Q6HR PRN #1 03/20/20 Hfa Inhaler (Mhu)] inhaler Cephalexin [Keflex] 500 mg PO BID 5 Days #10 cap 04/24/20 Ibuprofen [Motrin] 600 mg PO Q8HR PRN #30 tab 04/24/20 methocarbamoL [Robaxin] 500 mg PO TID PRN #15 tab 04/24/20 traMADol HCl [Ultram] 50 mg PO Q6H PRN #12 tab 05/25/20 Allergies Allergy/AdvReac Type Severity Reaction Status Date / Time furosemide Allergy Unknown Rash/Hives Verified 05/25/20 15:40 Review of Systems ROS Other: All systems not noted in ROS Statement are negative. <Luc Rueda - Last Filed: 05/31/20 16:07> ROS Other: All systems not noted in ROS Statement are negative. <Silvia Jolly - Last Filed: 06/04/20 15:35> ROS Statement: Those systems with pertinent positive or pertinent negative responses have been documented in the HPI. Past Medical History Past Medical History: Atrial Fibrillation Additional Past Medical History / Comment(s): ANEMIA, SOB WITH ACTIVITY, past hx. of a fib but not current, occasional epigastric pain, irritating cough, left lung cyst History of Any Multi-Drug Resistant Organisms: None Reported Past Surgical History: Bariatric Surgery, Uterine Ablation Additional Past Surgical History / Comment(s): GASTRIC BYPASS, TUMMY TUCK, PARATHYROID removed, repair of hiatal hernia @[place] 2016 Past Anesthesia/Blood Transfusion Reactions: Postoperative Nausea & Vomiting (PONV) Additional Past Anesthesia/Blood Transfusion Reaction / Comment(s): no hx blood transfusion Past Psychological History: ADD/ADHD, Anxiety, Bipolar, Depression Smoking Status: Never smoker Past Alcohol Use History: None Reported Past Drug Use History: None Reported - Past Family History Mother Family Medical History: Congestive Heart Failure (CHF), COPD, Deep Vein Thrombosis (DVT), Myocardial Infarction ([place]) Father History Unknown: Yes <Silvia Jolly - Last Filed: 06/04/20 15:35> General Exam Limitations: no limitations <Silvia Jolly - Last Filed: 06/04/20 15:35> Course Vital Signs 05/25/20 05/25/20 05/25/20 15:37 17:10 17:17 Temperature 97.6 F Pulse Rate 68 63 57 L Respiratory 16 24 14 Rate Blood Pressure 119/63 124/79 149/82 O2 Sat by Pulse 100 100 100 Oximetry 05/25/20 05/25/20 05/25/20 17:27 17:32 18:31 Temperature Pulse Rate 55 L 63 67 Respiratory 14 18 16 Rate Blood Pressure 144/83 132/78 143/80 O2 Sat by Pulse 95 100 100 Oximetry Procedures - Orthopedic Joint Reduction Joint #1 Consent Obtained: verbal consent Side: left Joint Reduction Location: shoulder Analgesia: procedural sedation Shoulder Technique Used (if applicable): traction/counter-traction, external rotation Post-Reduction Neuro Exam: intact Post-Reduction Vascular Exam: intact Post Reduction X-Ray Obtained: Yes Post Reduction X-Ray Results: reduced Splint Applied: Yes Patient Tolerated Procedure: well, no complications <Luc Rueda - Last Filed: 05/31/20 16:07> - [place] Protocol (Time Out) Procedure Performed:: Left Shoulder Reduction Performing Provider: Silvia Jolly Nurse: Kimmie Cai Respiratory Therapist: Gloria Tamayo Patient Identification (2 identifiers required): Chart, Verbal, Arm Band, Name, Birthdate Patient/Legal Decal Maker has Confirmed: Identity, Site, Procedure, Consent Site: Left Shoulder Site Marked: Yes Site Verified With Patient/Guardian: Yes Final Confirmation: Procedure, Site, Patient Position - Procedural Sedation Procedural Sedation Start Time: 17:12 Procedural Sedation Stop Time: 17:32 Indications: fracture/dislocation reduction ASA Class: II Mallampati Airway Score: 2 Preparation: night monitor applied, pulse oximeter, capnometry used, supplemental O2 applied, reversal agents at bedside, suction/airway equipment at bedside IV Propofol Dose (mgs): 70 Complications: hypoventilation Interventions: assist by BVM Patient Tolerated Procedure: well, no complications <Silvia Jolly - Last Filed: 06/04/20 15:35> Medical Decision Making <Silvia Jolly Last Filed: 06/04/20 15:35> - Medical Decision Making Upon arrival the patient is placed into room 22. A thorough history and physical exam was performed. Peripheral IV is established the patient was given or milligrams of morphine. X-rays performed of the left shoulder and left humerus. He does demonstrate an anterior shoulder dislocation. Patient is consented for conscious sedation. She is given 70 mg of propofol and adequate sedation was achieved. Shoulder was reduced by the NAKIA Kunz. Repeat x-ray demonstrates anatomic reduction. The patient is placed in sling. She will be given Tylenol 3 for pain control at home as she continues to have some pain. She needs to follow up with the orthopedic surgeon in regards to her injury is concerned about rotator cuff injury. The patient understood this. She continues to refuse any imaging of her head or cervical spine. The patient is asked to return to the emergency room should she have any new or worsening symptoms. The patient was agreeable with this. She was watched for 3 hours total including her conscious sedation and the patient returned to her baseline neurologic function. She was then discharged home in stable condition (Silvia Jolly) Disposition <Luc Rueda - Last Filed: 05/31/20 16:07> Is patient prescribed a controlled substance at d/c from ED?: Yes When asked, does pt state using other controlled substances?: No If prescribed controlled substance>3 days was MAPS reviewed?: Prescribed <3 Days If opioid is for acute pain is fill amount 7 days or less?: Yes If Rx opioid, was Start Talking consent form obtained?: Yes Time of Disposition: 18:24 <Silvia Jolly - Last Filed: 06/04/20 15:35> Clinical Impression: Fall, Left shoulder pain, Dislocation, shoulder, anterior Disposition: HOME SELF-CARE Condition: Stable Instructions (If sedation given, give patient instructions): Shoulder Dislocation (ED), Moderate Sedation (ED) Additional Instructions: Please follow-up with the orthopedic doctor in regards to your shoulder dislocation and continued pain. Wear the sling. Rest, ice and elevate the extremity. Return to the emergency room for any new or worsening symptoms Prescriptions: traMADol HCl [Ultram] 50 mg PO Q6H PRN #12 tab PRN Reason: Pain Referrals: Carl Ramirez MD [Primary Care Provider] - 1-2 days Anastacio Jessica DO [Doctor of Osteopathic Medicine] - 1-2 days
[2020-05-25 18:34] VITALS: BP 143/80; PULSE 67; RESP 16
== END 2020-05-25 18:54 | disposition home or self-care (01) ==
LOC: EC 15:29
DX: S43.085A Other dislocation of left shoulder joint, initial encounter (principal); F41.9 Anxiety disorder, unspecified; F31.9 Bipolar disorder, unspecified; F90.9 Attention-deficit hyperactivity disorder, unspecified type; Z79.899 Other long term (current) drug therapy; Z88.8 Allergy status to other drugs, medicaments and biological substances; W11.XXXA Fall on and from ladder, initial encounter; Y92.009 Unspecified place in unspecified non-institutional (private) residence as the place of occurrence of the external cause; Z98.84 Bariatric surgery status; I48.91 Unspecified atrial fibrillation
CPT/HCPCS: 99283; 96374; 96375 ×2; 23650; 99152; 73030; 73020; 73060; J2405; J1170; J2704

== ENCOUNTER → 2020-06-25 | Day surgery (SDC) | payer OTHER ==
[2020-06-24 11:49] VITALS: BMI 24.7
[~2020-06-25] MED LIST changes: +IOPAMIDOL M200 10 ML VIAL ONE; -LIDOCAINE 1% 20 ML VIAL (10MG/ML) FOR IV START INTRADERMA ONE; -LIDOCAINE 1% INJ 10MG/ML (20 ML MDV) ONE; -ONDANSETRON 4 MG/2 ML VIAL IVP ONE; -PROPOFOL 10 MG/ML 20 ML VIAL IV ONE; +SODIUM CHLORIDE 0.9% (PF) 10 ML VIAL ONE; +methylPREDNISolone ACETATE 40 MG/ML 1 ML VIAL ONE
[2020-06-25 09:50] VITALS: RESP 16; TEMP 97.6
--- NOTE | 2020-06-25 10:34 | P.PCN ---
Date of Procedure: 06/25/20 Procedure(s) Performed: PREOPERATIVE DIAGNOSIS: 1-Lumbar foraminal stenosis. 2-lumbar degenerative disc disease. POSTOPERATIVE DIAGNOSIS: Same as preoperative diagnoses. PROCEDURE 1. Transforaminal epidural steroid injection under fluoroscopic guidance at left L5-S1 level. (Fluoroscopy images stored on file in the radiology Department ) 2. Lumbar epidurogram : ANESTHESIA: Local with 1% lidocaine 3 ml . EBL: Minimal PROCEDURE INDICATION: The patient with low back pain and radiculopathy symptoms unresponsive to conservative treatment. PROCEDURE DESCRIPTION / TECHNIQUE: The patient was seen and identified in the preoperative area. Risks, benefits, complications, and alternatives were discussed with the patient. The patient agreed to proceed with the procedure and signed the consent. IV was started, and vital signs were stable. Patient was taken to the OR and time out was completed. The patient was placed in the prone position on procedure table and a pillow was placed under the abdomen to reduce lumbar lordosis. The lumbosacral area was prepped and draped in the usual sterile fashion. Critical pause was taken. Vital signs were closely monitored during the procedure. Using oblique fluoroscopy, the chin of the `[place] dog at L5-S1 level was identified, and the skin and deeper tissues just below was localized with 1% lidocaine. Subsequently, a 22-gauge 3.5-inch spinal needle was advanced under a tunneled view fluoroscopic guidance just underneath the chin of the `[place] dog at the left L5-S1 Under lateral fluoroscopy, the needle was then advanced to the posterior border of the interforaminal space. After negative aspiration of CSF and blood and with no paresthesias, 1 mL Isovue 200 contrast dye was injected excellent epidurogram and outlining of the nerve root Subsequently, 3 mL of block solution containing 40 mg Depo-Medrol and 2 mL of 0.9% normal saline PF was injected. Needle was removed , skin was cleansed, and bandages were applied. COMPLICATIONS:none DISPOSITION / PLANS: The patient was placed in a supine position and transferred to the recovery area in a stable condition for observation. There was no evidence of lower extremity motor or sensory deficit after the procedure. Patient was discharged from the recovery room after meeting discharge criteria. Home discharge instructions were given to the patient by the staff. The patient was reexamined prior to discharge.
[2020-06-25 10:52] VITALS: BP 152/84; PULSE 60
--- NOTE | 2020-06-25 11:42 | FL ---
EXAMINATION TYPE: FL guided pain mgmt statistic DATE OF EXAM: 06/25/2020 HISTORY: Fluoroscopy time 9 seconds of fluoroscopy provided. IMPRESSION: 1. Fluoroscopy time.
== END ==
LOC: ORPAIN 09:30
PROVIDERS: ATTEND Specialist
DX: M48.061 Spinal stenosis, lumbar region without neurogenic claudication (principal); M51.16 Intervertebral disc disorders with radiculopathy, lumbar region
CPT/HCPCS: 64483; J1030; Q9966

== ENCOUNTER 2020-07-16 08:51 | Day surgery (SDC) | payer OTHER ==
[2020-07-10 15:53] VITALS: BMI 24.7
[2020-07-16 09:04] VITALS: TEMP 96.5
[2020-07-16] MEDS ORDERED: DEXAMETHASONE SOD PHOSPHATE 10 MG/ML 1 ML VIAL ONE (09:11)
[2020-07-16] MEDS ORDERED: IOPAMIDOL M200 10 ML VIAL ONE (09:11)
--- NOTE | 2020-07-16 09:24 | P.PCN ---
Date of Procedure: 07/16/20 Description of Procedure: PREOPERATIVE DIAGNOSIS: 1-Lumbar foraminal stenosis. 2-lumbar degenerative disc disease. POSTOPERATIVE DIAGNOSIS: Same as preoperative diagnoses. PROCEDURE 1. Transforaminal epidural steroid injection under fluoroscopic guidance at left L5-S1 level. (Fluoroscopy images stored on file in the radiology Department ) 2. Lumbar epidurogram : ANESTHESIA: Local with 1% lidocaine 3 ml . EBL: Minimal PROCEDURE INDICATION: The patient with low back pain and radiculopathy symptoms unresponsive to conservative treatment. PROCEDURE DESCRIPTION / TECHNIQUE: The patient was seen and identified in the preoperative area. Risks, benefits, complications, and alternatives were discussed with the patient. The patient agreed to proceed with the procedure and signed the consent. IV was started, and vital signs were stable. Patient was taken to the OR and time out was completed. The patient was placed in the prone position on procedure table and a pillow was placed under the abdomen to reduce lumbar lordosis. The lumbosacral area was prepped and draped in the usual sterile fashion. Critical pause was taken. Vital signs were closely monitored during the procedure. Using oblique fluoroscopy, the chin of the `AmyMatty dog at L5-S1 level was identified, and the skin and deeper tissues just below was localized with 1% lidocaine. Subsequently, a 22-gauge 3.5-inch spinal needle was advanced under a tunneled view fluoroscopic guidance just underneath the chin of the `Oswaldoy dog at the left L5-S1 Under lateral fluoroscopy, the needle was then advanced to the posterior border of the interforaminal space. After negative aspiration of CSF and blood and with no paresthesias, 1 mL Isovue 200 contrast dye was injected excellent epidurogram and outlining of the nerve root Subsequently, 3 mL of block solution containing 10 mg dexamethasone and 1 mL lidocaine 1%inject ed. Needle was removed , skin was cleansed, and bandages were applied. COMPLICATIONS:none DISPOSITION / PLANS: The patient was placed in a supine position and transferred to the recovery area in a stable condition for observation. There was no evidence of lower extremity motor or sensory deficit after the procedure. Patient was discharged from the recovery room after meeting discharge criteria. Home discharge instructions were given to the patient by the staff. The patient was reexamined prior to discharge.
[2020-07-16 09:32] VITALS: RESP 20
[2020-07-16 09:45] VITALS: BP 134/79; PULSE 76
--- NOTE | 2020-07-16 11:55 | FL ---
Fluoroscopy HISTORY: Pain 4 seconds fluoroscopy time supplied to the referring clinician. 1 intraoperative C-arm images docume nt the procedure. See dictated report from anesthesia.
== END 2020-07-16 09:57 | disposition home or self-care (01) ==
LOC: ORPAIN 08:51
PROVIDERS: ATTEND Anesthesiology
DX: M48.061 Spinal stenosis, lumbar region without neurogenic claudication (principal); M51.16 Intervertebral disc disorders with radiculopathy, lumbar region; Z88.8 Allergy status to other drugs, medicaments and biological substances; Z78.0 Asymptomatic menopausal state
CPT/HCPCS: 64483; J1100; Q9966

== ENCOUNTER → 2020-07-17 | Outpatient (CLI) | payer OTHER ==
--- NOTE | 2020-07-17 17:31 | MR ---
EXAMINATION TYPE: MR shoulder LT wo con DATE OF EXAM: 07/17/2020 COMPARISON: Outside radiographs 06/26/2020 HISTORY: 65-year-old female LEFT SHOULDER PAIN TECHNIQUE: Multiplanar, multisequence imaging of the left shoulder is performed without contrast. FINDINGS: Abnormal intrinsic signal within the intracapsular portion of the long head biceps tendon could repre sent tendinosis or partial tear. The extracapsular portion remains appropriately situated along the b icipital groove with mild tenosynovial fluid. Some heterogeneous signal of the subscapularis tendon without tear. Moderate degenerative joint space narrowing and marginal spurring at the acromioclavicular joint. Inf erior spurring has mass effect on to the myotendinous junction of the supraspinatus. Mild to moderate effusion is present in the subacromial/subdeltoid bursa. There is marked thinning of both supraspinatus and infraspinatus tendons. Large intrasubstance defect present at the mid to posterior supraspinatus tendon measures 1.6 cm AP and 1.1 cm long. Given the f luid in the overlying bursa, a small full-thickness communication is difficult to exclude. Extensive heterogeneity of the infraspinatus tendon with areas of intrasubstance change. There is minimal fatty infiltration of the infraspinatus muscle belly. Otherwise, rotator cuff muscle volume is maintained. Some increased signal within the posterior superior labrum and marked degenerative blunting of the po sterior labrum. There may be a tear extending along the anterior labrum on the axial images, transaxi al image 15. Mild glenohumeral joint effusion. The glenohumeral joint otherwise appears intact. The second image at the top of the humeral head shows some flattening of the lateral aspect of the hu meral head measuring 1.6 cm wide and 1.7 cm AP. No significant bone marrow edema is identified here. There is edematous soft tissue placement in the region of the rotator cuff interval and poor definiti on to the axillary recess. No os acromiale. No suspicious bone marrow replacement. IMPRESSION: 1. Prominent bony concavity of the superolateral humeral head measuring 1.7 x 1.6 cm. Findings may re flect bony remodeling relating to chronic rotator cuff tendinopathy. However, a chronic Hill-Sachs im paction deformity would be favored if there is a history of prior shoulder dislocation. 2. Diffuse rotator cuff tendinosis with a markedly thin supraspinatus and infraspinatus tendon. Also, there is a large 1.6 x 1.1 cm intrasubstance tear at the footprint of the mid to posterior supraspin atus tendon. Given mild to moderate fluid in the overlying bursa, unable to exclude a small full-thic kness communication. 3. Minimal fatty infiltration of the infraspinatus muscle belly. 4. Moderate AC joint OA with subacromial impingement. 5. Degenerative and blunted posterior labrum. Additional findings suspicious for an anterior labral t ear. No bony Bankart injury. 6. Edematous soft tissue thickening within the rotator cuff interval could represent synovitis, chron ic sprains of the biceps akua, or adhesive capsulitis. Correlate with patient's symptoms. 7. Intracapsular long head biceps tendinosis. Mild tenosynovitis.
== END | disposition home or self-care (01) ==
LOC: RADMRIMAIN 13:08
PROVIDERS: ATTEND Orthopaedic Surgery
DX: M19.012 Primary osteoarthritis, left shoulder (principal); M75.42 Impingement syndrome of left shoulder; M75.102 Unspecified rotator cuff tear or rupture of left shoulder, not specified as traumatic; M89.8X1 Other specified disorders of bone, shoulder; M67.814 Other specified disorders of tendon, left shoulder; M79.89 Other specified soft tissue disorders; M75.52 Bursitis of left shoulder

== ENCOUNTER → 2020-07-24 | Outpatient (CLI) | payer OTHER | END | disposition home or self-care (01) | LOC: LABPAT 11:08 | PROVIDERS: ATTEND Orthopaedic Surgery | DX: Z01.812 Encounter for preprocedural laboratory examination (principal) | CPT/HCPCS: 87070 ==

== ENCOUNTER 2020-08-13 06:14 | Inpatient (IN) | payer OTHER ==
[2020-08-12 08:33] VITALS: BMI 24.7
--- NOTE | 2020-08-12 08:37 | P.HPOR ---
History of Present Illness H&P Date: 08/07/20 Chief Complaint: Low back and leg pain, buttock pain, declining ambulatory s [place] CC: I have had low back pain that does not seem to want to go away on my left side and radiates to my buttock and leg HISTORY: Physical Therapy: No Injections: No Activity Modifications: none Brace: No 05/06/20:This 65 year old female presents with 3 months of low back pain. Patient notes increased pain on the left side. She notes pain at night time while trying to sleep. Patient notes increased pain with bending Forward. She denies radiating pain. She has history of lipomas. She had a previous CT scan pelvis 04/24/2020. Patient has history of treatment. She takes Tramadol without relief. she denies any bowel or bladder incontinence. She denies any perineal numbness. She denies any radicular symptoms currently. 05/31/20: This 65 year old female presents with today for a follow up on her lumbar spine pain and MRI and CT results. She reports intermittent left sided pain that increases with prolonged standing and bending. She is continuing to do home exercises with NO relief. She completed a medrol dose pack with NO relief. Patient is taking Ultram for pain. Patient is ambulating independently. she recently dislocated her shoulder after falling off of a ladder which was then relocated in the emergency department. She states some left shoulder pain with this but is wearing a sling. Show a states no numbness or tingling and no other symptoms. Her back and leg symptoms are still present although not severe at this time. 08/07/20: This 65 year old female presents with today for a follow up on her lumbar spine pain and to discuss her upcoming scheduled surgery. She reports intermittent left sided pain that increases with prolonged standing and bending. She is continuing to do home exercises with 0 relief. She did have to 2 previous lumbar spine transforaminal injections at L5 and S1 on the left with no relief. She has been doing home exercises with no relief. . She completed a medrol dose pack with no relief. Patient is taking Ultram for pain.She did previously take Motrin for pain without resolution of her back pain. The patients' past social, medical, family, surgical history, as well as review of systems, have been reviewed. Please refer to the Neurosurgery History and Physical form that has been scanned in to our electronic medical record system. Review of Systems 14 points review of systems completed and as stated in HPI, all other systems reviewed are negative. Past Medical History Past Medical History: Atrial Fibrillation, Osteoarthritis (OA) Additional Past Medical History / Comment(s): ANEMIA, left lung cyst, PAST HISTORY ATRIAL FIBRILLATION, History of Any Multi-Drug Resistant Organisms: None Reported Past Surgical History: Bariatric Surgery, Uterine Ablation Additional Past Surgical History / Comment(s): GASTRIC BYPASS, TUMMY TUCK, PARATHYROID removed, repair of hiatal hernia @[facility] 2016 AND [facility] REPAIRED AT SAME TIME" Past Anesthesia/Blood Transfusion Reactions: Postoperative Nausea & Vomiting (PONV) Additional Past Anesthesia/Blood Transfusion Reaction / Comment(s): no hx blood transfusion Smoking Status: Never smoker - Past Family History Mother Family Medical History: Congestive Heart Failure (CHF), COPD, Deep Vein Thrombosis (DVT), Myocardial Infarction (RI) Father History Unknown: Yes Medications and Allergies Home Medications Medication Instructions Recorded Confirmed Type DULoxetine HCL [Cymbalta] 60 mg PO HS 01/24/14 07/16/20 History Dextroamphetamine/Amphetamine 40 mg PO DAILY 01/24/14 07/16/20 History [Adderall] lamoTRIgine [LaMICtal] 100 mg PO BID 01/24/14 07/16/20 History QUEtiapine [SEROquel] 75 mg PO HS 03/26/17 07/16/20 History traMADol HCl [Ultram] 50 mg PO TID 08/12/20 08/12/20 History Allergies Allergy/AdvReac Type Severity Reaction Status Date / Time furosemide Allergy Unknown Rash/Hives Verified 06/24/20 11:24 diphenhydramine Allergy Rapid Verified 06/24/20 11:24 [From Sudafed PE Severe Cold] Heart Rate, SHORTNESS OF BREATH phenylephrine Allergy Rapid Verified 06/24/20 11:24 [From Sudafed PE Severe Cold] Heart Rate, SHORTNESS OF BREATH all cold medicine Allergy Rapid Uncoded 08/12/20 08:21 Heart Rate Physical Examination Osteopathic Statement: *. No significant issues noted on an osteopathic structural exam other than those noted in the History and Physical/Consult. General: Awake, alert, appropriate for age, in no acute distress. HEENT: No unusual neck masses around region of lateral neck triangle, thyroid, supraclavicular groove Heart: Regular rate and rhythm, normal S1, S2 and no murmur/gallop. Lungs: Clear to auscultation bilaterally with no use of accessory muscles. Extremities: Skin warm and dry without acute lesions, coloration, temperature, skin intact, no tenderness or erythema Integument: Hairy patches: Absent Dorsal skin dimples: Absent Cafe au lait spots: Absent Surgical incisions: none Palpation: Please see Pain drawing on Intake sheet for further detail. Midline spinal tenderness: yes lumbar E6 Paralumbar tenderness: yes left > right E6 Parathoracic tenderness: No E6 Buttocks tenderness: No E6 Special findings: positive lateral compression on the right Sacroiliac joint tenderness: yes on the left POSTURAL and MUSCULO-SKELETAL EVALUATION: Coronal Balance: Neutral Recumbent testing: Patient is to lay flat on back Sagittal Balance: Neutral Shoulder Profile: [Level] Pelvic Girdle: [Level] Neck ROM: Unrestricted Lumbar ROM: Unrestricted Shoulder ROM: Symmetric in abduction, ER/IR Hip ROM: Symmetric in abduction, adduction, ER/IR Knee ROM: Symmetric and intact in Flexion / extension Hands: Normal Feet: Normal VASCULAR STATUS : LEFT RIGHT Wrist Pulses intact intact Pedal Pulses (Dors. pedis & post.tibialis) intact intact Color normal normal Edema Absent Absent NEUROLOGIC EXAMINATION: Mental Status: Awake and alert, fully oriented, with normal attention, concentration and memory, and fluent, appropriate speech. Cranial Nerves: I: Olfactory not tested. II: Visual acuity normal, no visual field deficit noted with confrontation. III,IV: Normal pupillary reflexes & intact extraocular movements without nystagmus. V,: Intact symmetrical facial sensation. VII: Intact symmetrical facial motor movement VIII: Hearing intact. IX,X: Intact gag, swallow, & normal voice. XI: Sternocleidomastoid, trapezius function intact. XII: Tongue midline with normal movements. L'hermitte's Sign: Negative / absent Spurling'Sign: Absent bilaterally. Cubital percussion test: Absent bilaterally. Jaret-Tinel sign - Carpal region: Absent bilaterally. Straight Leg Raising: Mild positivity on L Crossed straight leg raise: negative 5 MOTOR EXAM (0-5/5, N/T) STRENGTH RIGHT LEFT Shoulder Abd (not part of the STEVE score) 5 5 Elbow Flexors 5 5 Elbow Extensor 5 5 Wrist Dorsiflexors 5 5 Finger Abductor 5 5 House Piping Inspector 5 5 Hip Flexor (Not part of STEVE Motor score) 5 5 Knee Flexor 5 5 Knee Extensor 5 5 Ankle dorsiflexor 5 5 Ankle plantarflexion 5 5 Extensor hallucis 5 5 REFLEXES(0-4/2, NT) RIGHT LEFT Upper Extremities 2 2 Lower Extremities 2 2 Pathological Reflexes RIGHT LEFT Tolbert's Absent Absent Clonus Absent Absent Negative babinski b/l Muscle appearance: normal tone, no fasciculations Rectal Tone: not tested Sensory system (0-4, N/T) Test type RU PENNY RL LL Joint-Position 2 2 2 2 Vibration 2 2 2 2 Pain & LT sense 2 2 2 2 Dermatomal Deficit: none none none none Gait and Functional Evaluation: Ambulatory aids: Independent Romberg's test: Intact bilaterally Toe heel walk / heel-toe walk intact while maintaining satisfactory balance? No Squatting/straightening w/o assistance to a min of 60 degree knee flexion? yes Single leg stance: intact Trendelenburg sign negative bilaterally Hand and finger dexterity intact bilaterally? yes Disdiadochokinesis examination negative bilaterally? yes Results XRAY: AP, lateral, flexion, extension views of the lumbar spine obtained and reviewed. This demonstrates approximately 72 of lumbar lordosis with 70 of pelvic incidence. There is what appears to be a anterior listhesis of L5 on S1, along with spondylosis at this region. Approximate 6.4 mm. This seems to accentuate to 8.1 mm on flexion views which puts her on the borderline of unstable. It does appear that she may have a pars defect on these x-rays as well. Otherwise there are no other fractures or dislocations noted and her alignment is well maintained. AP pelvis demonstrates congruent femoral acetabular joints. Level pelvis, and no fractures or dislocations CT chest,abdomen and pelvis on 04/24/2020 that she received at the hospital was reviewed. This also seems to demonstrate some sort of pars defect or infiltrative process of the left pars region. This is where the patient is also having pain. There are no other fractures or dislocations noted. MRI of the lumbar spine from 05/24/2020 reveals: overall maintained alignment. She does have spondylosis of L5-S1 with a grade 1 spondylolisthesis. She has disc bulging at L3 4 which causes very mild central stenosis. She has central and foraminal stenosis at L5-S1 which is mild central and moderate foraminal. CT of the lumbar spine from 05/20/2020 reveals: no acute fractures or dislocations noted. Spondylosis at L5-S1. Overall well- maintained alignment. High sacral slope. Assessment and Plan Assessment: 1. L5-S1 spondylosis with grade 1 spondylolisthesis, with radiculopathy and stenosis 2. L3 4 mild central and foraminal stenosis Plan: Spine Surgery Risk Review Stacy Peterson is a 65 yo female presenting for evaluation of low back pain buttock pain and LE pain and weakness. It was my pleasure to have seen and examined Stacy Peterson. In our visit today we have had a chance to go over subjective complaints, physical examination findings and treatments including the natural course history without intervention and various interventional options. The patients im aging demonstrates L5-S1 spondylosis, severe with Grade I spondylolisthesis and stenosis. On physical exam, Stacy Peterson demonstrates back pain, buttock pain, LLE radiculopathy, inability to perform ADLs to her satisfaction due to her pain and debility. I have explained to the patient that as their condition progresses it will cause further neurological deficits and eventual paralysis. Based on the patients imaging, physical exam, and the rapid progression and disabling nature of their symptoms, at this time I recommend surgery in the form or a: L5-S1 TLIF and Posteiolateral fusion. I discussed the risk and benefits of this procedure at length with Stacy Peterson. The patient agreed to considered pursuing the procedure abovementioned. Prior to surgery, she should follow up with her PCP (Cardio, ID, IM etc) for clearance. Questions were invited and answered, and the patient wishes to proceed as outlined below. Currently, I am recommendin.L5-S1 transforaminal lumbar interbody fusion with posteriolateral fusion and decompression 2.Follow up with PCP for surgical clearance 3.Review of surgical risks and benefits as well as an educational packet on the proposed surgical procedure. Risks: All surgical procedures come with inherent risks, including those related to positioning, anesthesia, intraoperative findings, and postoperative complications. It is important to understand that surgery does not come with any guarantee of a successful outcome as complications and adverse events are always possible. The patient was given a handout in office today discussing the surgical procedure and risks associated with the intervention, both of which were discussed with the patient. These risks include but are not limited to the following: * Experiencing same, different or even worse symptoms in back, neck, arms, or legs compared to before surgery. Requiring further surgery or other forms of treatment presently or at some time in the future at same or other levels of the intended spine surgery. On an extreme but fortunately relatively rare basis severe complication such as blindness, stroke, heart attack, temporary and/or permanent nerve injury, paralysis, coma, or may occur, sometimes without known explanation. Surgical complications may include but are not limited to risk of infection, fluid accumulation in the surgical dissection site, including a seroma or hematoma, that requires additional surgery, wound drainage, bleeding, new numbness or weakness, vision changes/loss, spinal fluid leakage, non-healing and/or infected incision, headaches, difficulty or inability to swallow, hoarseness, hemopneumothorax, pneumothorax, impotence, retrograde ejaculation, vaginal dryness; injury to nerves, spinal cord, blood vessels, lymphatics or other vital organs (i.e., bowel injury, injury to the great vessels); heterotopic bone formation; complications related to the hardware such as screw s, rods, cages including misplaced hardware, device failure, instrumentation at the wrong spine level, hardware fracture/breakage, or hardware loosening; vertebral failure of the spinal column above or below the newly placed hardware; retained surgical instrumentations or devices and the need for further surgery. * Medical risks of the planned spine surgery include but are not limited to generalized Infections to the whole body or local areas outside of the surgical site (sepsis), heart attack, bleeding, anaphylaxis, meningitis, seizure, epilepsy, hearing loss, burn العلي, laceration of the head or other areas of the body, bruising, hypersensitivity of the skin, bladder over distension; allergic reaction; shoulder injury related to positioning; fat, blood and air clots to other areas of the body like heart, lungs, brain; failure of internal organs such as lungs, kidneys, liver and excessive bleeding. If blood transfusions are necessary, note that transfusions may cause intolerance reactions such as anaphylaxis or other complex reactions. Despite best efforts, the results of spine surgery might not heal in terms of bone, soft tissues such as skin, fascia, ligaments, and joints. Additionally, in order to achieve best possible results, spine surgery may be carried out beyond the initially planned levels and involve decompression, fusion including insertion of hardware at levels other than the original intended area of surgical interest change some portions of the procedure in order to ensure the best possible outcomes. With spine surgery and spinal fusion, there are different off label uses of instrumentation (devices, implants and hardware) as well as biological substances (bone morphogenic proteins, demineralized bone matrix) as well as using extra bone from allograft sources (i.e. cadaver bone) or autograft (iliac crest bone, ribs, or the spine itself). The patient has been given information about these practices and their inherent risks and benefits. [facility] is an educational center that serves as a training facility for neurosurgical and orthopedic spine residents and fellows. Residents are physicians who are completing their surgical intensive training following medical school. They assist in the operating room with direct supervision of the attending surgeons. Chamberlain are surgeons who have completed their training and eligible for board certification. They have opted for an elective year of more specialized training in their field. They assist in the operating room under the supervision of the attending surgeons. Physician assistants are medically trained surgical providers who function in the outpatient, inpatient, and operating room setting under the direct supervision of the attending surgeon. [facility] has multiple operating rooms with single and overlapping rooms running daily. They currently function under the required guidelines as produced by the [facility] Finance Committee with regards to the overlapping rooms and will continue to comply with changes to this policy as they occur. The requirements include and are complied with as follows: (1) the critical portions of the overlapping rooms will not occur at the same time, (2) the attending physician will be physically present during the critical portions of the procedure and immediately available during the entire case, and (3) a back-up attending is designated should the primary attending not be immediately available. The patient has had a chance to review all the listed information, has been given print outs detailing this information, and has had all his/her questions answered to their satisfaction. It was my pleasure to have seen and examined Stacy Peterson. In our visit today we have had a chance to go over my understanding of our patient's current condition, the natural course history without intervention and various interventional options. Questions were invited and answered, and the patient wishes to proceed as outlined above. I have seen and examined the patient for 25 minutes and we have spent more than 50% of the time in repeat and detailed counseling about the patient's condition, its natural course history with out and as much as can be predicted with surgery and re-review of various surgical treatment options. In conclusion,Stacy Ervinevert requested we proceed with the above suggested surgery and are willing to accept risks and limitations of the suggested surgery as nature of the disease process and our best attempts at treatment for the condition. Thank you again for allowing us to be part of your patient's care. Please don't hesitate to contact me if you have any further questions. Signed and authenticated by: Mike Ortiz [facility] [address] [facility], [address] [address] Time with Patient: Greater than 30
[~2020-08-13 06:14] MED LIST changes: +ACETAMINOPHEN TAB 500 MG TAB PO PRN; +GABAPENTIN 300 MG CAP PO PRN; -IOPAMIDOL M200 10 ML VIAL ONE; -LACTATED RINGERS 1,000 ML IV SCH; +ONDANSETRON 4 MG/2 ML VIAL IVP PRN; -SODIUM CHLORIDE 0.9% (PF) 10 ML VIAL ONE; +TRANEXAMIC ACID 1,000 MG in SODIUM CHLORIDE 0.9% 100 ML IVPB PRN; -methylPREDNISolone ACETATE 40 MG/ML 1 ML VIAL ONE
[2020-08-13] MEDS ORDERED: ONDANSETRON 4 MG/2 ML VIAL IVP ONE (06:24)
[2020-08-13] MEDS ORDERED: MIDAZOLAM 2 MG/2 ML VIAL IV PRN (06:24)
[2020-08-13] MEDS ORDERED: DEXAMETHASONE SOD PHOSPHATE 4 MG/ML 1 ML VIAL IV ONE (06:24)
[2020-08-13] MEDS ORDERED: LIDOCAINE 1% (10MG/ML) FOR IV START INTRADERMA PRN (06:24)
[2020-08-13] MEDS: LACTATED RINGERS 1,000 ML IV SCH (06:50)
[2020-08-13 07:35] LABS: ALT 12 U/L (4-34); AST 21 U/L (14-36); African American GFR (CKD) >90 (>60 ml/min/1.73 sqM); Albumin 4.1 g/dL (3.5-5.0); Alkaline Phosphatase 90 U/L (38-126); Anion Gap 3 mmol/L; Blood Urea Nitrogen 12 mg/dL (7-17); Calcium 9.3 mg/dL (8.4-10.2); Carbon Dioxide 30 mmol/L (22-30); Chloride 106 mmol/L (98-107); Glucose 82 mg/dL (74-99); Non-African American GFR(CKD) 80 (>60 ml/min/1.73 sqM); Potassium 3.9 mmol/L (3.5-5.1); Sodium 139 mmol/L (137-145); Total Bilirubin 0.4 mg/dL (0.2-1.3); Total Protein 6.6 g/dL (6.3-8.2)
[2020-08-13] MEDS ORDERED: SUCCINYLCHOLINE CHLORIDE 100 MG/5 ML SYR IV ONE ×2 (07:35)
[2020-08-13] MEDS ORDERED: WATER FOR INJECTION, STERILE 10 ML VIAL IV ONE (07:35)
[2020-08-13] MEDS ORDERED: TRANEXAMIC ACID 1,000 MG/10 ML VIAL ONE (07:35)
[2020-08-13] MEDS ORDERED: NEOSTIGMINE 1 MG/ML 10 ML VIAL ONE (07:35)
[2020-08-13] MEDS ORDERED: PROPOFOL 10 MG/ML 20 ML VIAL IV ONE (07:35)
[2020-08-13] MEDS ORDERED: MIDAZOLAM 2 MG/2 ML VIAL ONE (07:35)
[2020-08-13] MEDS ORDERED: HYDROmorphone (PF) 1 MG/ML ONE (07:35)
[2020-08-13] MEDS ORDERED: PHENYLEPHRINE 10 MG/ML VIAL ONE (07:35)
[2020-08-13] MEDS ORDERED: fentaNYL (PF) 50 MCG/ML 2 ML AMP ONE (07:35)
[2020-08-13] MEDS ORDERED: SODIUM CHLORIDE 0.9% 100 ML BAG ONE (07:35)
[2020-08-13] MEDS ORDERED: LIDOCAINE 1% INJ 10MG/ML (20 ML MDV) ONE (07:35)
[2020-08-13] MEDS ORDERED: GLYCOPYRROLATE 0.2 MG/ML 2 ML VIAL ONE (07:35)
[2020-08-13] MEDS ORDERED: ROCURONIUM 10 MG/ML (10 ML VIAL) IV ONE (07:35)
[2020-08-13] MEDS ORDERED: BUPIVACAINE (PF) 0.25% 30 ML VIAL SQ ONE (08:26)
[2020-08-13] MEDS ORDERED: THROMBIN (BOVINE) 5,000 UNIT VIAL TOPICAL ONE (08:26)
[2020-08-13] MEDS ORDERED: GELATIN SPONGE,ABSORB (LARGE) 1 EACH SPONGE TOPICAL ONE (08:26)
[2020-08-13] MEDS ORDERED: LACTATED RINGERS 1,000 ML IV ONE ×2 (10:45→13:39)
[2020-08-13] MEDS ORDERED: VANCOMYCIN 1,000 MG VIAL MISCELLANE ONE (11:23)
[2020-08-13] MEDS: HYDROmorphone 0.5 MG/0.5 ML SYRINGE IVP PRN ×4 (12:29→13:22)
[2020-08-13] MEDS ORDERED: ONDANSETRON 4 MG/2 ML VIAL IVP PRN (12:54)
[2020-08-13] MEDS ORDERED: SENNOSIDES 8.6 MG TAB PO PRN (12:54)
--- NOTE | 2020-08-13 13:59 | XR ---
Limited lumbar spine history: Lumbar fusion 2 intraoperative C-arm images document the procedure
--- NOTE | 2020-08-13 14:02 | FL ---
Fluoroscopy HISTORY: Posterior lumbar fusion 72 seconds fluoroscopy time supplied to the referring clinician. 2 intraoperative C-arm images docum ent the procedure. See dictated report from orthopedic surgery.
[2020-08-13] MEDS: GABAPENTIN 300 MG CAP PO SCH ×3 (16:08→19:25)
[2020-08-13] MEDS: oxyCODONE-APAP 10-325MG 1 EACH TAB PO PRN ×2 (16:08→21:47)
[2020-08-13] MEDS: 0.9% NACL WITH KCL 20 MEQ/L 1,000 ML IV SCH (16:09)
[2020-08-13] MEDS: CYCLOBENZAPRINE 10 MG TAB PO PRN ×2 (17:50→20:51)
[2020-08-13] MEDS: DOCUSATE 100 MG CAP PO SCH (19:18)
[2020-08-13] MEDS: HYDROmorphone 1 MG/ML 1 ML SYRINGE IVP PRN ×2 (19:18→23:08)
[2020-08-14] MEDS: HYDROmorphone 1 MG/ML 1 ML SYRINGE IVP PRN ×2 (02:10→07:37)
[2020-08-14] MEDS: 0.9% NACL WITH KCL 20 MEQ/L 1,000 ML IV SCH ×2 (03:21→16:46)
[2020-08-14] MEDS: oxyCODONE-APAP 10-325MG 1 EACH TAB PO PRN ×4 (04:24→21:25)
[2020-08-14] MEDS: CYCLOBENZAPRINE 10 MG TAB PO PRN (04:25)
[2020-08-14] MEDS: LACTATED RINGERS 1,000 ML IV SCH (04:48)
[2020-08-14 05:37] LABS: Basophils % (A) 0 %; Eosinophils # (A) 0.1 k/uL (0-0.7); Eosinophils % (A) 1 %; HGB 12.6 gm/dL (11.4-16.0); Lymphocytes # (A) 0.4 k/uL (1.0-4.8); Lymphocytes % (A) 5 %; MCH 33.1 pg (25.0-35.0); MCHC 33.1 g/dL (31.0-37.0); MCV 100.1 fL (80.0-100.0); Monocytes # (A) 0.5 k/uL (0-1.0); Monocytes % (A) 6 %; Neutrophils # (A) 6.9 k/uL (1.3-7.7); Neutrophils % (A) 88 %; Platelet Count 176 k/uL (150-450); RDW 12.8 % (11.5-15.5); WBC 7.9 k/uL (3.8-10.6)
[2020-08-14] MEDS: GABAPENTIN 300 MG CAP PO SCH ×3 (07:42→21:16)
[2020-08-14] MEDS: DOCUSATE 100 MG CAP PO SCH ×2 (07:42→21:16)
--- NOTE | 2020-08-14 09:33 | P.PN ---
Subjective Progress Note Date: 08/14/20 Principal diagnosis: L5-S1 spondylosis with listhesis Patient seen and examined this morning. She is in a decent amount of pain this morning she has not been up since surgery. She denies any bowel or bladder issues she denies perineal numbness tingling she does complain of some numbness and tingling in her bilateral lower extremities always around her feet as well as up in the front portion of her hips. This is likely related to positioning. She is otherwise good motor function of her lower extremities bilaterally with no complaints of weakness. Objective - Vital Signs Vital signs: Vital Signs Temp 98.5 F 08/14/20 08:00 Pulse 83 08/14/20 08:00 Resp 16 08/14/20 08:00 BP 125/80 08/14/20 08:00 Pulse Ox 98 08/14/20 08:00 Intake & Output 08/13/20 08/14/20 08/14/20 18:59 06:59 18:59 Intake Total 1850 Output Total 637 900 Balance 1213 -900 Intake: IV 1850 Output: Urine 437 900 Estimated Blood Loss 200 Other: Voiding Method Indwelling Catheter Indwelling Catheter - Exam GEN: AOX3, NAD VSS Inspection: Ringing in bed in some pain this morning Palpation: Mild tennis palpation around the wound. No fluctuance no erythema or ecchymosis Motor: 5/5 shoulder abd/EF/EE/WF/intrinsics 5/5 DF/PF/EHL/FHL/HF/KE/KF Reflexes: 2/4 DTR all upper and LE Sensation intact to light touch in C5-T1 as well as L2-S1 distribution Tolbert's: Negative Clonus: neg Babinski: neg Incision: Lean dry and intact no erythema or ecchymosis or edema Dressing: Lean dry and intact Currently her's 2 through 12 grossly intact 2/4 distal pulses all - Labs CBC & Chem 7: 08/14/20 05:14 08/13/20 07:00 Labs: Abnormal Lab Results - Last 24 Hours (Table) 08/14/20 Range/Units 05:14 MCV 100.1 H (80.0-100.0) fL Lymphocytes # 0.4 L (1.0-4.8) k/uL Assessment and Plan Assessment: 65-year-old female postop day 1 L5-S1 posterior lateral instrumented fusion with decompression 1. L5-S1 spondylosis with grade 1 spondylolisthesis, with radiculopathy and stenosis 2. L3 4 mild central and foraminal stenosis Plan: -Appreciate medicine management. -Pain control: Continue with IV medication as well as oxycodone 10 Flexeril and Tylenol -Aggressive ambulation protocol. OOB with all meals. OOB or in chair 4-5x daily. -PT/OT -TEDs, SCDs, mechanical ppx. OK for heparin today. Early ambulation is best. -GI ppx. -Computed tomography scan of lumbar spine to evaluate -Trend labs. -Dispo: Home 1-2 days will likely need home care
[2020-08-14 10:00] LABS: African American GFR (CKD) 111.6 (60.0-200.0); Anion Gap 11.9 mmol/L (4.00-12.00); BUN/Creat Ratio 11.67 Ratio (12.00-20.00); Calcium 8.6 mg/dL (8.7-10.3); Carbon Dioxide 21.1 mmol/L (21.6-31.8); Non-African American GFR(CKD) 96.3 (60.0-200.0); Potassium 4.2 mmol/L (3.5-5.5)
--- NOTE | 2020-08-14 10:18 | CT ---
EXAMINATION TYPE: CT lumbar spine wo con DATE OF EXAM: 08/14/2020 COMPARISON: 05/20/2020 HISTORY: Post Op Evaluation CT DLP: 621 mGycm CONTRAST: None TECHNIQUE: CT of the lumbar spine is performed on a spiral scan at 3 mm thick sections. Reconstructed images are performed in the coronal and sagittal planes. FINDINGS: T12-L1 to L2-L3: Mild disc bulge is present with anterior thecal sac flattening. No AP spinal canal s tenosis present. Neural foramen are patent. L3-L4: Broad-based disc bulge has mild to moderate anterior thecal sac flattening. Facet hypertrophy is present. No spinal canal stenosis or neural foraminal stenosis present. L4-L5: Postsurgical changes are present. Small amount of air may be within the spinal canal. Beam zak dening artifact from pedicle screws and rods are present limiting evaluation to this level. Obvious s tenosis is not evident. L5-S1: Laminectomy has been performed. Minimal grade 1 spondylolisthesis appears stable. Vertebral alignment otherwise appears normal. IMPRESSION: 1. Postsurgical changes L4-5 L5-S1. 2. Mild disc bulging with anterior thecal sac flattening upper lumbar spine
--- NOTE | 2020-08-14 13:00 | P.OP ---
Date of Procedure: 08/13/20 Preoperative Diagnosis: 1 L5-S1 Grade I spondylolisthesis 2. L5-S1 disc osteophyte complex with stenosis 3. Nerogenic claudication Postoperative Diagnosis: 1 L5-S1 Grade I spondylolisthesis 2. L5-S1 disc osteophyte complex with stenosis 3. Nerogenic claudication Procedure(s) Performed: 1. L5-S1 posterior lateral instrumented fusion 2. L5-S1 decompression with complete facetectomy foraminotomy and discectomy for removal of disc osteophyte complex 3. Use of intraoperative navigation for screw placement Implants: [address] or screws 4 45 x 7 5 mm [employer] bone graft, bio 4, autograft Anesthesia: GETA Surgeon: Mike Telles (RUBÉN Cerna was present for the duration of the case and necessary secondary to the convexity of the case) Estimated Blood Loss (ml): 200 IV fluids (ml): 1,500 Urine output (ml): 500 Pathology: none sent Condition: stable Disposition: PACU Indications for Procedure: 05/06/20:This 65 year old female presents with 3 months of low back pain. Patient notes increased pain on the left side. She notes pain at night time while trying to sleep. Patient notes increased pain with bending Forward. She denies radiating pain. She has history of lipomas. She had a previous CT scan pelvis 04/24/2020. Patient has history of treatment. She takes Tramadol without relief. she denies any bowel or bladder incontinence. She denies any perineal numbness. She denies any radicular symptoms currently. 05/31/20: This 65 year old female presents with today for a follow up on her lumbar spine pain and MRI and CT results. She reports intermittent left sided pain that increases with prolonged standing and bending. She is continuing to do home exercises with NO relief. She completed a medrol dose pack with NO relief. Patient is taking Ultram for pain. Patient is ambulating independently. she recently dislocated her shoulder after falling off of a ladder which was then relocated in the emergency department. She states some left shoulder pain with this but is wearing a sling. Show a states no numbness or tingling and no other symptoms. Her back and leg symptoms are still present although not severe at this time. 08/07/20: This 65 year old female presents with today for a follow up on her lumbar spine pain and to discuss her upcoming scheduled surgery. She reports intermittent left sided pain that increases with prolonged standing and bending. She is continuing to do home exercises with 0 relief. She did have to 2 previous lumbar spine transforaminal injections at L5 and S1 on the left with no relief. She has been doing home exercises with no relief. . She completed a medrol dose pack with no relief. Patient is taking Ultram for pain.She did previously take Motrin for pain without resolution of her back pain. Operative Findings: Mobile L5-S1 segment with facet hypertrophy and arthrosis severe lordotic angle with pseudoarthrosis anterior disc space Description of Procedure: The patient was seen and examined in the preoperative area. All preoperative protocols were followed. Informed consent was obtained risks and benefits of the procedure were discussed at length. Risks including bleeding infection damage to the surrounding tissue and risk of reoperation were discussed with the patient. Risk of anesthesia up to and including was a discussed with the patient. These are outlined in the risk review. They were willing to accept these risks and all of the risks of surgery. The patient was given a weight- based dose of antibiotics in the form of 2 g Ancef IVPB 1. The patient was seen and evaluated by the anesthesia team who deemed them fit for surgery. The site was marked, the patient was willing to proceed with the procedure. The patient was transferred to the operative suite by the Department of anesthesia. They were then drifted off to sleep by the department anesthesia Gen. endotracheal intubation. The patient tolerated this well. Diallo catheter was placed by the nursing staff atraumatically. Once confirmation of lines and ventilation the patient was transferred to a prone Lauro Aung table very carefully. All bony prominences including wrists, elbows, axilla, chest, hips, and thighs, and feet were padded very well. Special attention was paid to the genitalia and these were padded accordingly. SCDs were placed on bilateral lower extremities and were connected. Arms were well padded and placed on arm boards up and out in the 90/90 position. Once in position, again we confirmed good ventilation capabilities and that lines were running appropriately. The patient's lumbar spine was then exposed. 1010s were placed outlining the incision site. Standard alcohol was used to clean the incision site and allowed to dry. C-arm was used to biomark the patient and confirm level for incision which was marked with a skin marker. Operative briefing was performed with all teams and everyone in agreement to proceed. The patient was then prepped and draped in a normal sterile fashion. Timeout was then performed and all parties were in agreement with the procedure to be performed. Previous and by marked area was then infiltrated with 1% lidocaine without epinephrine. Once this is accomplished skin knife was used to make skin incision over previous about marked area. Electrocautery dissection was used for hemostasis as well as for dissection down to the lumbosacral fascia. The patient had a large amount of subcu fatty tissue which was free and removed likely secondary to her previous surgery. Lumbosacral fascia was identified and cleaned with a Cardenas. Fasciotomy was then made midline over the spinous process of L4 through S1. Subperiosteal is subperiosteal dissection was taken along the L5 lamina out to the L5-S1 facet joints as well as the L4 5 facet joints which were maintained intact. This allowed for good visualization of the L4 5 and L5- S1 facet joints dissection was taken out to the transverse process of L5 as well which once identified were decorticated due to limited space. The sacral Emily was also decorticated this area. Once dissection was complete to right-sided PSIS pins were placed for tracker placement for the navigation. These pins were placed using lateral fluoroscopy. Once in good position the tracker was secured into position. The wound was then filled with normal sterile saline and covered with a sterile Z drape. A 3-D C-arm spent was then obtained and images uploaded to the navigation system. Once images were confirmed and good a probe was used to confirm the navigation accuracy and had appeared to be accurate. Using navigation that a navigated bur was used to enter the L4 pedicle on the left this is followed by an. The navigation was having difficulty registering and so a lateral C-arm was brought in for confirmation of good placement. Once confirmation of good placement on AP and lateral fluoroscopy and navigation a 02/17/1944 screw was selected and placed this was then repeated at the S1 pedicle. We then repeated the sequence of navigated bur all tapped and navigated pedicle finders feeling in between each instrument to ensure no medial breeches for placement of the right-sided L5 and S1 screws. Once screws were place another seems fit was obtained to confirm good screw placement which showed adequate screw placement. Once screws were accomplished the tracker was then removed and the pins removed atraumatically. We then proceeded with the decompression of L5 and S1 via laminectomy complete medial facetectomy of the IP of 5 as well as the SAP of S1 this allowed for visualization of the L5-S1 disc space. On the left-hand side there was a large disc osteophyte complex which was then removed using a rongeur. The disc space was accessed however was poorly mobile. It was accessed on the left as well as the right however was unable to be broken free and the endplates were extremely soft which would have lent to subsidence avoid any cage placement in this area. The decompression was wide and adequate and allowed for good decompression of the nerves in this area and there was good decortication of the TPs and the sacral Emily and so at this point it was decided to forego the interbody at this level as it had essentially autofused anteriorly bone was packed within the voids that were created after access to allow for continued fusion anteriorly. Rods were then selected and were placed into the screw heads and set screws were placed and locked into place and final tightened a cross connector was then selected and final tightened to place. FloSeal was used for meticulous hemostasis as well as electrocautery Surgicel was placed over the dura. The wound was then copiously irrigated with normal sterile saline 3 L. 2 g of powdered vancomycin was then placed into the wound the fascia was then closed with 0 PDS in a [id number]-[id number] fashion followed by 2-0 PDS in the subcu tissue followed by 3-0 Monocryl subcuticular region. This was then washed with alcohol and dressed sterilely with axis and tape glue Telfa 4 x 4's and Tegaderms. No drain was placed as the patient was extremely dry at the end of surgery. The patient was transferred back to her hospital bed atraumatically. Patient was then awakened and extubated by the department of anesthesia having tolerated the procedure very well with no complications. She was transferred to the postoperative care unit in stable condition.
[2020-08-14] MEDS: DULoxetine HCL 60 MG CAPSULE.DR PO SCH (15:56)
[2020-08-14] MEDS: lamoTRIgine 100 MG TAB PO SCH (15:56)
--- NOTE | 2020-08-14 16:06 | P.CNPUL ---
History of Present Illness Consult date: 08/14/20 (Medical management) Chief complaint: Medical management History of present illness: This is a 65-year-old female seen evaluated examined on fifth floor, patient is somnolent but arousable, patient is postop day #1 for L5-S1 posterior lateral fu amanda with decompression due to severe degree of stenosis and radiculopathy, I'm medical history significant for seizure disorder, mood disorder,, and labs reviewed Review of Systems All systems: negative Past Medical History Past Medical History: Atrial Fibrillation, Osteoarthritis (OA) Additional Past Medical History / Comment(s): ANEMIA, left lung cyst, PAST HISTORY ATRIAL FIBRILLATION, History of Any Multi-Drug Resistant Organisms: None Reported Past Surgical History: Bariatric Surgery, Uterine Ablation Additional Past Surgical History / Comment(s): GASTRIC BYPASS, TUMMY TUCK, PARATHYROID removed, repair of hiatal hernia @[facility] 2015 AND [facility]A REPAIRED AT SAME TIME" Past Anesthesia/Blood Transfusion Reactions: Postoperative Nausea & Vomiting (PONV) Additional Past Anesthesia/Blood Transfusion Reaction / Comment(s): no hx blood transfusion Past Psychological History: ADD/ADHD, Anxiety, Bipolar, Depression Additional Psychological History / Comment(s): borderline personality disorder Smoking Status: Never smoker Past Alcohol Use History: None Reported Past Drug Use History: None Reported - Past Family History Mother Family Medical History: Congestive Heart Failure (CHF), COPD, Deep Vein Thrombosis (DVT), Myocardial Infarction ([place]) Additional Family Medical History / Comment(s): skin Father History Unknown: Yes Medications and Allergies Home Medications Medication Instructions Recorded Confirmed Type DULoxetine HCL [Cymbalta] 60 mg PO QAM 01/24/14 08/12/20 History Dextroamphetamine/Amphetamine 20 mg PO DAILY 01/24/14 08/12/20 History [Adderall] lamoTRIgine [LaMICtal] 100 mg PO QAM 01/24/14 08/12/20 History QUEtiapine [SEROquel] 75 mg PO HS 03/26/17 08/12/20 History traMADol HCl [Ultram] 50 mg PO TID 08/12/20 08/12/20 History Allergies Allergy/AdvReac Type Severity Reaction Status Date / Time furosemide Allergy Unknown Rash/Hives Verified 06/24/20 11:24 diphenhydramine Allergy Rapid Verified 06/24/20 11:24 [From Sudafed PE Severe Cold] Heart Rate, SHORTNESS OF BREATH phenylephrine Allergy Rapid Verified 06/24/20 11:24 [From Sudafed PE Severe Cold] Heart Rate, SHORTNESS OF BREATH all cold medicine Allergy Rapid Uncoded 08/12/20 08:21 Heart Rate Physical Exam Vitals: Vital Signs Temp Pulse Resp BP Pulse Ox 08/14/20 14:00 99.2 F 76 16 129/77 95 08/14/20 08:00 98.5 F 83 16 125/80 98 08/14/20 02:33 98.0 F 65 16 121/80 97 08/13/20 20:00 97.7 F 53 L 18 127/73 100 Intake and Output 08/14/20 08/14/20 08/14/20 06:59 14:59 22:59 Output Total 600 300 Balance -600 -300 Output: Urine 600 300 Other: Voiding Method Indwelling Catheter - Constitutional General appearance: average body habitus, disheveled - EENT Eyes: PERRLA Ears: bilateral: normal - Neck Carotids: bilateral: upstroke normal - Respiratory Respiratory: bilateral: CTA - Cardiovascular Rhythm: regular Heart sounds: normal: S1, S2 - Gastrointestinal General gastrointestinal: normal bowel sounds - Neurologic Neurologic: CNII-XII intact - Psychiatric Psychiatric: A&O x's 3 Results - Laboratory Findings CBC and BMP: 08/14/20 05:14 08/14/20 05:14 Abnormal lab findings: Abnormal Labs 08/14/20 08/14/20 05:14 05:14 MCV 100.1 H Lymphocytes # 0.4 L Carbon Dioxide 21.1 L BUN 7.0 L BUN/Creatinine Ratio 11.67 L Glucose 125 H Calcium 8.6 L Assessment and Plan Assessment: Mood disorder depression L4 5 radiculopathy status post decompression doing well Plan: Continue supportive care will follow clinical course closely Time with Patient: Greater than 30
[2020-08-14] MEDS ORDERED: QUEtiapine 25 MG TAB PO SCH (21:00)
[2020-08-15] MEDS: 0.9% NACL WITH KCL 20 MEQ/L 1,000 ML IV SCH (05:51)
[2020-08-15 06:23] LABS: Basophils % (A) 0 %; Eosinophils # (A) 0.1 k/uL (0-0.7); Eosinophils % (A) 1 %; HCT 39.4 % (34.0-46.0); HGB 12.8 gm/dL (11.4-16.0); Lymphocytes # (A) 0.6 k/uL (1.0-4.8); Lymphocytes % (A) 6 %; MCH 32.8 pg (25.0-35.0); MCHC 32.5 g/dL (31.0-37.0); MCV 100.9 fL (80.0-100.0); Mean Platelet Volume 7.4; Monocytes # (A) 0.5 k/uL (0-1.0); Monocytes % (A) 6 %; Neutrophils # (A) 7.6 k/uL (1.3-7.7); Neutrophils % (A) 84 %; Platelet Count 194 k/uL (150-450); RBC 3.91 m/uL (3.80-5.40); RDW 12.9 % (11.5-15.5)
--- NOTE | 2020-08-15 07:57 | P.PN ---
Subjective Progress Note Date: 08/15/20 Principal diagnosis: L5-S1 spondylosis with listhesis Patient seen and examined this morning. She is doing much better today. Was up abnd about yesterday walking the room and halls. up to chair. Tolerating PO diet and meds. +void/flatus. She denies any bowel or bladder issues she denies perineal numbness tingling she does complain of some numbness and tingling in her bilateral lower extremities always around her feet as well as up in the front portion of her hips but this is much better today than it was yesterday. This is likely related to positioning. She is otherwise good motor function of her lower extremities bilaterally with no complaints of weakness. Objective - Vital Signs Vital signs: Vital Signs Temp 97.7 F 08/15/20 02:00 Pulse 88 08/15/20 02:00 Resp 17 08/15/20 02:00 BP 109/72 08/15/20 02:00 Pulse Ox 96 08/15/20 02:00 Intake & Output 08/14/20 08/15/20 08/15/20 18:59 06:59 18:59 Output Total 300 Balance -300 Output: Urine 300 Other: Voiding Method Indwelling Catheter Toilet - Exam GEN: AOX3, NAD VSS Inspection: Sitting at bedside. Palpation: Mild tennis palpation around the wound. No fluctuance no erythema or ecchymosis Motor: 5/5 shoulder abd/EF/EE/WF/intrinsics 5/5 DF/PF/EHL/FHL/HF/KE/KF Reflexes: 2/4 DTR all upper and LE Sensation intact to light touch in C5-T1 as well as L2-S1 distribution Tolbert's: Negative Clonus: neg Babinski: neg Incision: Lean dry and intact no erythema or ecchymosis or edema Dressing: Lean dry and intact Currently her's 2 through 12 grossly intact 2/4 distal pulses all - EENT Eyes: Present: EOMI, PERRLA - Neurologic Neurologic: Present: CNII-XII intact - Psychiatric Psychiatric: Present: A&O x's 3, appropriate affect, intact judgment & insight - Allied health notes Allied health notes reviewed: PT (CT scan reviewed. Hardware in good position. Decompression evident. No interval changes from intraoperative scan.) - Labs CBC & Chem 7: 08/15/20 06:05 08/14/20 05:14 Labs: Abnormal Lab Results - Last 24 Hours (Table) 08/14/20 08/15/20 Range/Units 05:14 06:05 MCV 100.9 H (80.0-100.0) fL Lymphocytes # 0.6 L (1.0-4.8) k/uL Carbon Dioxide 21.1 L (21.6-31.8) mmol/L BUN 7.0 L (9.0-27.0) mg/dL BUN/Creatinine Ratio 11.67 L (12.00-20.00) Ratio Glucose 125 H (70-110) mg/dL Calcium 8.6 L (8.7-10.3) mg/dL Assessment and Plan Assessment: 65-year-old female postop day 2 L5-S1 posterior lateral instrumented fusion with decompression 1. L5-S1 spondylosis with grade 1 spondylolisthesis, with radiculopathy and stenosis 2. L3 4 mild central and foraminal stenosis Plan: -Appreciate medicine management. -Pain control: Continue with IV medication as well as oxycodone 10 Flexeril and Tylenol -Aggressive ambulation protocol. OOB with all meals. OOB or in chair 4-5x daily. -PT/OT -TEDs, SCDs, mechanical ppx. OK for heparin today. Early ambulation is best. -GI ppx. -Computed tomography scan of lumbar spine evaluated. -Trend labs. -Dispo: Home today
--- NOTE | 2020-08-15 08:08 | P.DS ---
Providers Date of admission: 08/13/20 06:14 Expected date of discharge: 08/15/20 Attending physician: Mike Telles DO Consults: 08/13/20 12:50 Consult Physician Routine Consulting Provider: Saúl Quesada Consult Reason/Comments: medical management Do you want consulting provider notified?: Yes Primary care physician: [facility] Course: Spine Surgery Discharge Summary Note Admission Date: 08/13/2020 Discharge Date: 08/15/2020 Providers: Koki Principal Diagnosis: L5-S1 spondylosis with listhesis and stenosis Procedures: L5-S1 decompression fusion Secondary Diagnoses: Depression, anxiety Discharge Medications: See list Allergies: Furosemide diphenhydramine phenylephrine cold medicines Hospital Course: The patient was evaluated preoperatively and found to have the diagnosis of L5- S1 spondylosis with grade 1 anterior listhesis and stenosis. They underwent appropriate preoperative care and were willing to undergo the intended procedure. They underwent a successful L5-S1 posterior lateral fusion decompression, were recovered appropriately and sent to the floor. While on the floor they worked with physical therapy, occupational therapy and nursing to enhance their recovery experience. Their pain was well controlled through their stay and they were started on appropriate medications, DVT ppx modalities, activity and dietary needs. Daily labs were monitored closely, and transfusions were only used when necessary. Medicine as well as other consulting services have made their input and have helped with our team approach and multidisciplinary care. PT milestones have been met and passed and they have made the recommendation of home with self-care for this patient and treating providers agree with this care path. The patient will be discharged home with appropriate medications, instructions and follow-up information and in stable condition. Patient Condition at Discharge: Stable Plan - Discharge Summary Discharge Rx Participant: Yes New Discharge Prescriptions: New Docusate [Colace] 100 mg PO DAILY PRN #20 capsule PRN Reason: Constipation Cyclobenzaprine [Flexeril] 10 mg PO HS PRN #40 tab PRN Reason: Spasms Gabapentin 300 mg PO BID 3 Days #90 cap oxyCODONE HCL/ACETAMINOPHEN [Percocet 10-325 mg] 1 - 2 tab PO Q4HR PRN #50 tab PRN Reason: Pain Sennosides/Docusate Sodium [Senna Plus 8.6-50 mg Softgel] 1 each PO BID PRN #20 capsule PRN Reason: Constipation No Action Dextroamphetamine/Amphetamine [Adderall] 20 mg PO DAILY lamoTRIgine [LaMICtal] 100 mg PO QAM DULoxetine HCL [Cymbalta] 60 mg PO QAM QUEtiapine [SEROquel] 75 mg PO HS traMADol HCl [Ultram] 50 mg PO TID Discharge Medication List DULoxetine HCL [Cymbalta] 60 mg PO QAM 01/24/14 [History] Dextroamphetamine/Amphetamine [Adderall] 20 mg PO DAILY 01/24/14 [History] lamoTRIgine [LaMICtal] 100 mg PO QAM 01/24/14 [History] QUEtiapine [SEROquel] 75 mg PO HS 03/26/17 [History] traMADol HCl [Ultram] 50 mg PO TID 08/12/20 [History] Cyclobenzaprine [Flexeril] 10 mg PO HS PRN #40 tab 08/15/20 [Rx] Docusate [Colace] 100 mg PO DAILY PRN #20 capsule 08/15/20 [Rx] Gabapentin 300 mg PO BID 3 Days #90 cap 08/15/20 [Rx] Sennosides/Docusate Sodium [Senna Plus 8.6-50 mg Softgel] 1 each PO BID PRN #20 capsule 08/15/20 [Rx] oxyCODONE HCL/ACETAMINOPHEN [Percocet 10-325 mg] 1 - 2 tab PO Q4HR PRN #50 tab 08/15/20 [Rx] Follow up Appointment(s)/Referral(s): Carl Ramirez MD [Primary Care Provider] - 1 Week Mike Telles DO [Doctor of Osteopathic Medicine] - 2 Weeks Activity/Diet/Wound Care/Special Instructions: Spine Discharge and Recovery Instructions Date of Surgery: 08/13/2020 Diagnosis: L5-S1 spondylosis with grade 1 anterolisthesis Procedure: L5-S1 posterior lateral fusion with decompression Medications: To list All medication refills should be obtained through your primary care doctor or your clinic spine surgeon. Please discuss prescription refills at your follow up appointment. Do not call the hospital for medication refills. Dressing: Leave your dressing in place, remove outer dressing on morning of 08/17/2019. Then you may remove your dressing and leave open to air. Keep the area clean and if not able to keep area clean, then cover with sterile gauze and tape. Do not remove mesh tape on skin Showering: You may shower 3 days after your procedure allowing soap and water to run over incision. Do not scrub. Do not soak. Blot dry. Follow up: Please confirm a follow up appointment with your surgeon 2 weeks post operatively. Please make an appointment to follow up with your PCP in 1-2 weeks after surg tien for evaluation 3 phase, 3-week plan POST OP WEEKS 1-3 1. Lifting/carrying/pushing/pulling limited to less than 5 pounds. 2. Do not sit for longer than 15 minutes at one time. Get up and walk around. Prolonged sitting is NOT advised. If you lay down, see if you can tolerate laying down on you front (belly side) 3. Walk for periods of 15 minutes = 1 mile but no longer; do it multiple times times each day. 4.Ice your low back after activity. POST OP WEEKS 3-6 1. Lifting limited to less than 20 pounds. 2. Do not sit for longer than 30 minutes at a time. Frequently change positions. Use a sit-to stand workstation or take frequent breaks from sitting if you have returned to work. 3. Walk for 30 minutes each day. If possible, do these three or more times a day POST OP WEEKS 6+ At your 6-week appointment we will give you a physical therapy referral to focus on a core stabilization and strengthening program. You should also work on leg & buttock strengthening, hamstring & quadriceps stretching, and continue a low impact aerobic activity program such as swimming, walking, or riding a stationary bicycle. During the initial 6 weeks after your surgery, you are at the highest risk of re-injuring your spine. You should generally avoid BLTs (bending, lifting and twisting combination motions) and follow the above guidelines to reduce the chance of reinjury. You can anticipate post op appointments in our office at approximately 3 weeks and 6 weeks after your surgery. INCISION CARE: If your incision is not draining you do NOT need to cover it with a dressing. Keep your incision clean, dry and intact. In most cases, we apply skin glue, kit or sutures to the incision at the time of surgery. This will be like a crust or have the appearance of a scab and will fall off in time on its own. The stitches or kit need to be removed at 3 weeks post op appointment. You may begin to shower 3 days after surgery (this allows the glue to lazcano well). However, please avoid scrubbing the incision site or peeling off any of the skin glue. This will ensure optimal healing of your incision. Also, during this time avoid soaking the incision area in water - this includes swimming pools, hot tubs or baths. No ointments, lotions or oils on the incision until your surgeon allows. Leave kit, sutures or glue in place. Neurological dysfunction that comes on suddenly can also be a sign of a stroke. Below some common symptoms of a stroke are listed: B - balance difficulty such as sudden onset walking or leaning to one side - NEW E - eye problem such as sudden double vision or trouble seeing on one side - NEW F - Facial weakness or numbness on one side - NEW A - Arm or leg weakness or numbness on one side - NEW S - Slurred speech or difficulty with word finding - NEW T - Time is BRAIN! Call 911 as soon as you recognize these symptoms Diet: Consume a regular diet rich in vegetables and lean protein such as chicken or fish. You should consume in a ratio of approximately 20% fats|40% carbohydrates|40%protein. Vegetables, sweet potatoes, brown rice or quinoa are examples of good carbohydrates. Chips, white bread, cookies and sweets/sugar are examples of bad carbohydrates. Limit your bad carbs, go wild with good carbs. "Life's Simple 7" Guidelines as per [place] [employer] These will help you reclaim your life after surgery and rig builder helper in your recovery, keeping in mind your restrictions. (1) Get Active. Physical activity can help people lose weight, control high blood pressure and cholesterol, feel emotionally better, and sleep better. (2) Control Cholesterol. Avoid a diet high in saturated fat, trans fat, & cholesterol. Limit whole milk & cream, ice cream, butter, egg yolks, processed meats (like sausage and hot dogs), and fatty meats. Choose healthy foods that are low in saturated fat, trans fat and cholesterol which include: Fruits and vegetables, fiber rich grain products (like whole grain pasta and brown rice), lean meat such as chicken, fish, nuts, seeds, and legumes. (3) Eat Better. Eat small portions. Shop at the grocery with a list and do not stray from it. Tips for a healthy diet include: Limit sodium intake to less than 1500mg daily, avoid prepackaged, processed, and fast foods, choose a diet rich in fruits, vegetables, and whole grain, high fiber foods, and limit saturated & cholesterol in your diet. (4) Manage Blood Pressure. If you have high blood pressure, you should have a cuff at home so that you can check your blood pressure regularly. Be sure you have a good cuff. An arm one is generally better than a wrist one. Bring the cuff to a doctor's appointment to validate that the measurements that your cuff are taking are accurate. Take your blood pressure twice daily when you are sitting down and relaxing. Record the numbers in a log and bring this log with you to your doctors' appointments. (5) Lose Weight if your BMI is above 25. A healthy BMI is between 19-25. To calculate Your BMI, you may use a Standard BMI Calculator on the NIH BMI website: <www.nhlbi.nih.gov/guidelines/obesity/BMI/bmicalc.htm>. Weigh oneself daily. If you are overweight, set a goal to lose weight. A pound a week loss if needed is a good target. (6) Reduce Blood Sugar. Limit foods and liquids with "added sugars." (Added sugars include sucrose, fructose, glucose, maltose, dextrose, high fructose corn syrup, corn syrup, concentrated fruit juice and honey). (7) Stop Smoking. If you smoke, quitting smoking is one of the best things that you can do for your health. Smoking increases your risk of heart attack, stroke, and peripheral vascular disease, which is a build-up of plaque in your arteries. Please discard all the cigarettes and lighters in your house. Have a plan for what you will do when you have the urge to smoke. Direct and second- hand smoke shortens your life as well as the lives of your family, friends and others around you. For your health and the health of those around you, please consider quitting! Proper Bending Body Mechanics: Maintain a wide stance with one foot slightly in front of the other. Keep your back straight. Bend utilizing the strength in your hips and knees. Do not bend at the waist. Maintain the lifted object at your waist-level close to your body. Avoid lifting weight that causes immediately pain or pain anywhere in the body afterwards. Smoking/Nicotine If there was ever one thing that you could do to increase your overall health, decrease your risk of cardiovascular problems by about 39% the second you make the choice, it is to STOP SMOKING. Your body's most instant gratification is the second you stop smoking. We have all heard the studies, read the articles but it is true, smoking is extremely bad for your overall health, and moreover it is detrimental to your bone health. Nicotine, IN ANY FORM, kills bone cells, prevents your body from healing fractures, and significantly prolongs healing after surgery. In spine surgery specifically, it increases your risk of not healing your bones to create a fusion and increases your risk of having a revision surgery due to this up to 60%. I know it is hard. I know it feels impossible. But there are ways. Take control of your life. We are here to help you through it. And when you are ready, ask us and we can direct you to help if you desire. Use the START Plan to Quit Smoking (please visit the HelpguEverpay.org website listed below for more information): S = Set a quit date. Choose a date within the next 2 weeks, so you have enough time to prepare without losing your motivation to quit. If you mainly smoke at work, quit on the weekend, so you have a few days to adjust to the change. T = Tell family, friends, and co-workers that you plan to quit. Let your friends and family in on your plan to quit smoking and tell them you need their support and encouragement to stop. Look for a quit alexis who wants to stop smoking as well. You can help each other get through the rough times. A = Anticipate and plan for the challenges you'll face while quitting. Most people who begin smoking again do so within the first 3 months. You can help yourself make it through by preparing ahead for common challenges, such as nicotine withdrawal and cigarette cravings. R = Remove cigarettes and other tobacco products from your home, car, and work. Throw away all your cigarettes (no emergency pack!), lighters, ashtrays, and matches. Wash your clothes and freshen up anything that smells like smoke. Shampoo your car, clean your drapes and carpet, and steam your furniture. T = Talk to your doctor about getting help to quit. Your doctor can prescribe medication to help with withdrawal and suggest other alternatives. If you can't see a doctor, you can get many products over the counter at your local pharmacy or grocery store, including the nicotine patch, nicotine lozenges, and nicotine gum. Resources for Quitting Smoking: <https://www.[place].gov/documents/[facility]/Quit_Tobacco_Resources_for_patients_313 480_7.pdf> Supplementation: Take recommended dosages of Vitamin D and Calcium to help fortify your bones and help them to heal. See your health maintenance packet for dosages and recommended levels. DVT/VTE prophylaxis: You will be given compression stockings from the hospital. Wear these daily for the first two weeks after surgery. You may take them off at night. You may be prescribed a medication to help thin your blood. Take this as directed. If you are not prescribed this medication, early and frequent ambulation has been shown to be the best prophylaxis to deep vein thrombosis and sequelae related to this event. Discharge Disposition: HOME SELF-CARE
[2020-08-15] MEDS ORDERED: ADDERALL 20 MG PO SCH (09:00)
[2020-08-15] MEDS: DULoxetine HCL 60 MG CAPSULE.DR PO SCH (09:05)
[2020-08-15] MEDS: CYCLOBENZAPRINE 10 MG TAB PO PRN (09:05)
[2020-08-15] MEDS: GABAPENTIN 300 MG CAP PO SCH (09:05)
[2020-08-15] MEDS: DOCUSATE 100 MG CAP PO SCH (09:05)
[2020-08-15] MEDS: lamoTRIgine 100 MG TAB PO SCH (09:05)
[2020-08-15] MEDS: oxyCODONE-APAP 10-325MG 1 EACH TAB PO PRN (09:05)
[2020-08-15] MEDS: LACTATED RINGERS 1,000 ML IV SCH (09:05)
[2020-08-15 09:11] VITALS: BP 122/89; PULSE 91; RESP 16; TEMP 98.3
== END 2020-08-15 13:04 | disposition home or self-care (01) | DRG 460 ==
LOC: 2ORMAIN 06:14 → 5NMEDONC 12:41
PROVIDERS: ADMIT Orthopaedic Surgery; ATTEND Orthopaedic Surgery
PROC: 0SB40ZZ Excision of Lumbosacral Disc, Open Approach (ICD-10-PCS; principal; 2020-08-13 07:30)
PROC: 01NB0ZZ Release Lumbar Nerve, Open Approach (ICD-10-PCS; principal; 2020-08-13 07:30)
PROC: 0SG30AJ Fusion of Lumbosacral Joint with Interbody Fusion Device, Posterior Approach, Anterior Column, Open Approach (ICD-10-PCS; principal; 2020-08-13 07:30)
PROC: 01NR0ZZ Release Sacral Nerve, Open Approach (ICD-10-PCS; principal; 2020-08-13 07:30)
PROC: 8E0WXBZ Computer Assisted Procedure of Trunk Region (ICD-10-PCS; principal; 2020-08-13 07:30)
DX: M48.07 Spinal stenosis, lumbosacral region (principal); M25.78 Osteophyte, vertebrae; M54.17 Radiculopathy, lumbosacral region; M48.062 Spinal stenosis, lumbar region with neurogenic claudication; M43.17 Spondylolisthesis, lumbosacral region; F41.9 Anxiety disorder, unspecified; F31.9 Bipolar disorder, unspecified; F60.3 Borderline personality disorder; G40.909 Epilepsy, unspecified, not intractable, without status epilepticus; I48.91 Unspecified atrial fibrillation; M24.819 Other specific joint derangements of unspecified shoulder, not elsewhere classified; W11.XXXD Fall on and from ladder, subsequent encounter; Z79.899 Other long term (current) drug therapy; Z82.49 Family history of ischemic heart disease and other diseases of the circulatory system; Z82.5 Family history of asthma and other chronic lower respiratory diseases; Z83.2 Family history of diseases of the blood and blood-forming organs and certain disorders involving the immune mechanism; Z98.84 Bariatric surgery status; M19.90 Unspecified osteoarthritis, unspecified site; Z88.8 Allergy status to other drugs, medicaments and biological substances; E89.2 Postprocedural hypoparathyroidism; Z86.79 Personal history of other diseases of the circulatory system
CPT/HCPCS: 72100; 72131; 80048; 80053; 85025

== ENCOUNTER 2020-09-18 10:45 | Day surgery (SDC) | payer OTHER ==
[2020-09-13 16:25] VITALS: BMI 24.7
[~2020-09-18 10:45] MED LIST changes: +DEXAMETHASONE SOD PHOSPHATE 4 MG/ML 1 ML VIAL IV ONE; +LACTATED RINGERS 1,000 ML IV SCH; +LIDOCAINE 1% (10MG/ML) FOR IV START INTRADERMA PRN; +ONDANSETRON 4 MG/2 ML VIAL IVP ONE; -TRANEXAMIC ACID 1,000 MG in SODIUM CHLORIDE 0.9% 100 ML IVPB PRN; +VANCOMYCIN 1,000 MG in SODIUM CHLORIDE 0.9% 250 ML IVPB PRN
[2020-09-18] MEDS: LACTATED RINGERS 1,000 ML IV SCH ×2 (11:50→17:15)
[2020-09-18] MEDS ORDERED: LIDOCAINE 1% INJ 10MG/ML (20 ML MDV) ONE (12:10)
[2020-09-18] MEDS ORDERED: NEOSTIGMINE 1 MG/ML 10 ML VIAL ONE (12:10)
[2020-09-18] MEDS ORDERED: MIDAZOLAM 2 MG/2 ML VIAL ONE (12:10)
[2020-09-18] MEDS ORDERED: PROPOFOL 10 MG/ML 20 ML VIAL IV ONE (12:10)
[2020-09-18] MEDS ORDERED: KETAMINE 10 MG/ML 20 ML VIAL ONE (12:10)
[2020-09-18] MEDS ORDERED: ROCURONIUM 10 MG/ML (10 ML VIAL) IV ONE (12:10)
[2020-09-18] MEDS ORDERED: SUCCINYLCHOLINE CHLORIDE 100 MG/5 ML SYR IV ONE (12:10)
[2020-09-18] MEDS ORDERED: PHENYLEPHRINE 10 MG/ML VIAL ONE (12:10)
[2020-09-18] MEDS ORDERED: fentaNYL (PF) 50 MCG/ML 2 ML AMP ONE (12:10)
[2020-09-18] MEDS ORDERED: GLYCOPYRROLATE 0.2 MG/ML 2 ML VIAL ONE (12:10)
[2020-09-18] MEDS ORDERED: ceFAZolin 1,000 MG in SODIUM CHLORIDE 0.9% 1,000 ML IRRIGATION ONE (12:40)
[2020-09-18] MEDS ORDERED: VANCOMYCIN 1,000 MG VIAL MISCELLANE ONE (12:48)
[2020-09-18] MEDS ORDERED: HYDROcodone/APAP 5-325MG 1 EACH TAB PO PRN (13:45)
[2020-09-18] MEDS ORDERED: HYDROmorphone 0.5 MG/0.5 ML SYRINGE IVP PRN (13:45)
[2020-09-18] MEDS ORDERED: CYCLOBENZAPRINE 10 MG TAB PO PRN (13:47)
[2020-09-18] MEDS ORDERED: ONDANSETRON 4 MG/2 ML VIAL IVP PRN (13:47)
--- NOTE | 2020-09-18 13:56 | P.HPOR ---
History of Present Illness H&P Date: 09/18/20 Chief Complaint: lumbar wound issues 65 yo female with previous history of tummy tuck s/p L5-S1 PSIF doing well from this had some wound issues with necrotic tissue and continued drainage. This abated after a week or so, but left the incision with a eschar area. She has nesbitt d no fevers, chills or other issues. States her back aches but really does well otherwise. She was placed on outpt ABX for 10 days as ppx, but the wound would not heal due to the necrotic tissues and so the patient elected to have this dealt with. She was seen preop and we discussed risks and benefits once again of surgery including risk of bleeding, infection, damage to surrounding tissues, risk of needing further surgery risk of infection, and risk of anesthesia. She was willing to assume these risks and all of the risks of surgery and willing to proceed. Surgery went as planned. We are keeping her for 1 night just for abx and due to drain placement. Review of Systems All systems: negative Past Medical History Past Medical History: Atrial Fibrillation, Musculoskeletal Disorder, Osteoarthritis (OA), Skin Disorder Additional Past Medical History / Comment(s): Occ Anemia, left lung cyst. Hx L5-S1 fusion 08/12/20, wound dehiscence developed at site of old scar tissue. History of Any Multi-Drug Resistant Organisms: None Reported Past Surgical History: Back Surgery, Bariatric Surgery, Uterine Ablation Additional Past Surgical History / Comment(s): GASTRIC BYPASS, TUMMY TUCK, PARATHYROID removed, repair of hiatal hernia @[place] 2016 and thoracic aorta repaired (mesh had grown into it). Pain injections in back. L5-S1 fusion 08/12/20. Past Anesthesia/Blood Transfusion Reactions: Postoperative Nausea & Vomiting (PONV) Additional Past Anesthesia/Blood Transfusion Reaction / Comment(s): no hx blood transfusion Smoking Status: Never smoker - Past Family History Mother Family Medical History: Congestive Heart Failure (CHF), COPD, Deep Vein Thrombosis (DVT), Myocardial Infarction (NM) Additional Family Medical History / Comment(s): skin Father History Unknown: Yes Medications and Allergies Home Medications Medication Instructions Recorded Confirmed Type DULoxetine HCL [Cymbalta] 60 mg PO QAM 01/24/14 09/18/20 History Dextroamphetamine/Amphetamine 20 mg PO DAILY 01/24/14 09/18/20 History [Adderall] lamoTRIgine [LaMICtal] 100 mg PO QAM 01/24/14 09/18/20 History QUEtiapine [SEROquel] 75 mg PO HS 03/26/17 09/18/20 History cefaDROXiL [Duricef] 500 mg PO Q12HR 09/13/20 09/18/20 History Allergies Allergy/AdvReac Type Severity Reaction Status Date / Time furosemide Allergy Unknown Rash/Hives Verified 09/18/20 11:33 diphenhydramine Allergy Rapid Verified 09/18/20 11:33 [From Sudafed PE Severe Cold] Heart Rate, SHORTNESS OF BREATH phenylephrine Allergy Rapid Verified 09/18/20 11:33 [From Sudafed PE Severe Cold] Heart Rate, SHORTNESS OF BREATH all cold medicine Allergy Rapid Uncoded 09/18/20 11:33 Heart Rate Physical Examination Osteopathic Statement: *. No significant issues noted on an osteopathic structural exam other than those noted in the History and Physical/Consult. Pt AOX3 NAD VSS 5/5 all major muscle groups of UE and LE b/l SILT C5-T1 and L2-S1 2/4 distal pulses all b/l incision still has eschar non healing at this point. neg hoffmans, clonus or babinski b/l FROM all major joints w/o pain Assessment and Plan Assessment: 65 yo female s/p L5-S1 PSIF with wound issues POD0 from incision and drainage with wound revision. Plan: WBAT limit lifting bending twistsin pain control prn GI/dvt ppx, early ambulation, TEDS SCDs Vancomycin dosing Maintain drain, record output PT Likely home tomorrow
[2020-09-18] MEDS: HYDROmorphone 0.5 MG/0.5 ML SYRINGE IVP PRN ×2 (14:17→14:23)
[2020-09-18] MEDS ORDERED: 0.9% NACL WITH KCL 20 MEQ/L 1,000 ML IV SCH (14:30)
--- NOTE | 2020-09-18 14:49 | P.OP ---
Date of Procedure: 09/18/20 Preoperative Diagnosis: Lumbar wound eschar with dehiscence Postoperative Diagnosis: same Procedure(s) Performed: 1. Incision and drainage with scar revision of Lumbar wound with debridement of skin, soft tissue and muscle with the following -Currette, 15 blade rongure for removal of necrotic fat, skin and soft tissues 2. Complex wound closure 8 cm x 4 cm x 3 cm Implants: none Anesthesia: KEIKOA Surgeon: Mike Telles Estimated Blood Loss (ml): 10 IV fluids (ml): 1,000 Urine output (ml): 0 Pathology: other (cultures back x2) Condition: stable Disposition: PACU Indications for Procedure: 65 yo female with previous history of tummy tuck s/p L5-S1 PSIF doing well from this had some wound issues with necrotic tissue and continued drainage. This abated after a week or so, but left the incision with a eschar area. She has had no fevers, chills or other issues. States her back aches but really does well otherwise. She was placed on outpt ABX for 10 days as ppx, but the wound would not heal due to the necrotic tissues and so the patient elected to have this dealt with. She was seen preop and we discussed risks and benefits once again of surgery including risk of bleeding, infection, damage to surrounding tissues, risk of needing further surgery risk of infection, and risk of anesthesia. She was willing to assume these risks and all of the risks of surgery and willing to proceed. Surgery went as planned. We are keeping her for 1 night just for abx and due to drain placement. Operative Findings: Small subcue seroma, serous fluid, no purulence, no abscess seen. Facial layers completely intact. Description of Procedure: The patient was seen and examined in the preoperative area. All preoperative protocols were followed. Informed consent was obtained risks and benefits of the procedure were discussed at length. Risks including bleeding infection damage to the surrounding tissue and risk of reoperation were discussed with the patient. Risk of anesthesia up to and including was a discussed with the patient. These are outlined in the risk review. They were willing to accept these risks and all of the risks of surgery. The patient was given a weight- based dose of antibiotics in the form of vancomycin 1 g IVPB. The patient was seen and evaluated by the anesthesia team who deemed them fit for surgery. The site was marked, the patient was willing to proceed with the procedure. The patient was transferred to the operative suite by the Department of anesthesia. They were then drifted off to sleep by the department anesthesia general endotracheal intubation. The patient tolerated this well. . Once confirmation of lines and ventilation the patient was transferred to a prone Lauro Aung table very carefully. All bony prominences including wrists, elbows, axilla, chest, hips, and thighs, and feet were padded very well. Special attention was paid to the genitalia and these were padded accordingly. SCDs were placed on bilateral lower extremities and were connected. Arms were well padded and placed [on arm boards up and out in the 90/90 position]. Once in position, again we confirmed good ventilation capabilities and that lines were running appropriately. The patient's lumbar spine was then exposed. 1010s were placed outlining the incision site. Standard alcohol was used to clean the incision site and allowed to dry. C-arm was used to biomark the patient and confirm level for incision which was marked with a skin marker. Operative briefing was performed with all teams and everyone in agreement to proceed. The patient was then prepped and draped in a normal sterile fashion. Timeout was then performed and all parties were in agreement with the procedure to be perf ormed. Varus incision was marked. Skin marker was used to ellipse size out the area. 15 blade was then used to follow this heather. For ellipse sedation of the surgical scar. Within the subcu region there was a small seroma that had formed. This was serous in nature with no evidence of purulence. Upon dissection the fascia was completely intact with no dehiscence noted drainage and no purulence. Cultures were taken superficially as well as specimen and sent for evaluation. Skin knife was then used to remove the excess skin necrotic fat necrotic tissue in the area. 6 L of normal sterile saline were then used to irrigate out the wound with 3 L being antibiotic irrigation. Curet was then used to scrape the wound edges as well as the subcu tissue. The pocket that had formed to the seroma was likely due to her previous surgery in this area as she has old scar in this area which has formed other pockets. Once irrigation and debridement had been completed old PDS sutures were reinforced within the fascia. Complex closure was then performed with 0 PDS was then used to eliminate the space and a superficial drain was placed vancomycin powder as well as Cellerate powder were placed within the wound to subcu was then closed with 0 PDS 2-0 PDS to approximated the wound edges a running 2-0 nylon was then placed in the skin followed by intermediate interrupted stitches. The wound edges close very well the wound was then cleaned with alcohol and dressed sterilely with Cellerate gel covered with Telfa 4 x 4's and Tegaderms. The patient was transferred back to her hospital bed atraumatically. Drain continued to hold suction and were in good position. Patient was then awakened and extubated by the department of anesthesia having tolerated the procedure very well with no complications. She was transferred to the postoperative care unit in stable condition.
[2020-09-19] MEDS: VANCOMYCIN 1,250 MG in SODIUM CHLORIDE 0.9% 250 ML IVPB SCH ×2 (00:07→12:17)
--- NOTE | 2020-09-19 09:21 | P.PN ---
Subjective Progress Note Date: 09/19/20 Principal diagnosis: Seroma Lumbar wound. Patient seen and examined with Ashely doing very well. She was up and about walking around physical therapy pain is minimal. She denies fevers chills shortness of breath or chest pain. She denies any other issues. Objective - Vital Signs Vital signs: Vital Signs Temp 98.5 F 09/19/20 05:00 Pulse 60 09/19/20 05:00 Resp 18 09/19/20 05:00 BP 109/66 09/19/20 05:00 Pulse Ox 97 09/19/20 05:00 Intake & Output 09/18/20 09/19/20 09/19/20 18:59 06:59 18:59 Intake Total 1071 250 Output Total 10 20 Balance 1061 230 Weight 72 kg Intake: IV 1051 Intake, IV Titration 20 250 Amount 0.9% NaCl with KCl 20 Meq 20 /l 1,000 ml @ 20 mls/hr IV .Q24H KEL[facility] Rx#: [id number] Vancomycin 1,250 mg In 250 Sodium Chloride 0.9% 250 ml @ 125 mls/hr IVPB Q12H [facility]ELV[facility] Rx#:[id number] Output: Drainage 20 Back 20 Estimated Blood Loss 10 Other: Voiding Method Toilet Toilet # Voids 2 - Exam Patient is alert and oriented 3 appears well-nourished well-hydrated is in no acute distress. They does not appear septic. On exam the patient has no tenderness to palpation of her thoracic or lumbar spine. There is no edema or ballottement sign. They have good strength in her lower extremities with 5 out of 5 dorsiflexion plantar flexion EHL and FHL bilaterally. Upper extremities show 5/5 strength in all major muscle groups. There is FROM that is painless of the b/l UE and LE in all major joints. They are intact to light touch sensation in L2 to S1 nerve distribution. Patient has palpable dorsalis pedis was posterior tibial pulses. Compartments are soft and compressible. Patient shows a negative Homans, Tolbert's, negative Babinski's negative clonus bilaterally. negative straight leg raise bilaterally. No tensioning signs.Cranial nerves II through XII are grossly intact. Overall alignment is well-maintained in the sagittal coronal planes. Incision is clean dry and intact. Dressing is changed Cellerate is placed along with new dressing. No erythema or ecchymosis or edema. Drain is removed no purulence. - Constitutional General appearance: Present: cooperative - Labs Labs: Microbiology - Last 24 Hours (Table) 09/18/20 13:00 Gram Stain - Preliminary Back Wound Culture - Preliminary 09/18/20 13:00 Gram Stain - Preliminary Back Wound Culture - Preliminary 09/18/20 13:00 Anaerobic Culture - Preliminary Back 09/18/20 13:00 Anaerobic Culture - Preliminary Back Assessment and Plan Assessment: 65 yo female s/p L5-S1 PSIF with wound issues POD1 from incision and drainage with wound revision. Plan: WBAT limit lifting bending twistsing pain control prn GI/dvt ppx, early ambulation, TEDS SCDs Vancomycin dosing Maintain drain, record output PT Home today
--- NOTE | 2020-09-19 09:45 | P.DS ---
Providers Date of admission: 09/18/2020 Expected date of discharge: 09/19/20 Attending physician: Mike Telles DO Primary care physician: [facility] Course: Spine Discharge and Recovery Instructions Date of Surgery: 09/18/2020 Diagnosis: Wound healing issues with seroma lumbar spine Procedure: Irrigation and debridement with evacuation revision closure lumbar spine Medications: List All medication refills should be obtained through your primary care doctor or your clinic spine surgeon. Please discuss prescription refills at your follow up appointment. Do not call the hospital for medication refills. Dressing: Leave your dressing in place for a total of 3 days post operatively. Then you may remove your dressing and leave open to air. Keep the area clean and if not able to keep area clean, then cover with sterile gauze and tape. Showering: You may shower 3 days after your procedure allowing soap and water to run over incision. Do not scrub. Do not soak. Blot dry. Follow up: Please confirm a follow up appointment with your surgeon 2 weeks post operatively. Please make an appointment to follow up with your PCP in 1-2 weeks after surgery for evaluation 3 phase, 3-week plan POST OP WEEKS 1-3 1. Lifting/carrying/pushing/pulling limited to less than 5 pounds. 2. Do not sit for longer than 15 minutes at one time. Get up and walk around. Prolonged sitting is NOT advised. If you lay down, see if you can tolerate laying down on you front (belly side) 3. Walk for periods of 15 minutes = 1 mile but no longer; do it multiple times times each day. 4.Ice your low back after activity. POST OP WEEKS 3-6 1. Lifting limited to less than 20 pounds. 2. Do not sit for longer than 30 minutes at a time. Frequently change positions. Use a sit-to stand workstation or take frequent breaks from sitting if you have returned to work. 3. Walk for 30 minutes each day. If possible, do these three or more times a day POST OP WEEKS 6+ At your 6-week appointment we will give you a physical therapy referral to focus on a core stabilization and strengthening program. You should also work on leg & buttock strengthening, hamstring & quadriceps stretching, and continue a low impact aerobic activity program such as swimming, walking, or riding a stationary bicycle. During the initial 6 weeks after your surgery, you are at the highest risk of re-injuring your spine. You should generally avoid BLTs (bending, lifting and twisting combination motions) and follow the above guidelines to reduce the chance of reinjury. You can anticipate post op appointments in our office at approximately 3 weeks and 6 weeks after your surgery. INCISION CARE: If your incision is not draining you do NOT need to cover it with a dressing. Keep your incision clean, dry and intact. In most cases, we apply skin glue, kit or sutures to the incision at the time of surgery. This will be like a crust or have the appearance of a scab and will fall off in time on its own. The stitches or kit need to be removed at 3 weeks post op appointment. You may begin to shower 3 days after surgery (this allows the glue to lazcano well). However, please avoid scrubbing the incision site or peeling off any of the skin glue. This will ensure optimal healing of your incision. Also, during this time avoid soaking the incision area in water - this includes swimming pools, hot tubs or baths. No ointments, lotions or oils on the incision until your surgeon allows. Leave kit, sutures or glue in place. Neurological dysfunction that comes on suddenly can also be a sign of a stroke. Below some common symptoms of a stroke are listed: B - balance difficulty such as sudden onset walking or leaning to one side - NEW E - eye problem such as sudden double vision or trouble seeing on one side - NEW F - Facial weakness or numbness on one side - NEW A - Arm or leg weakness or numbness on one side - NEW S - Slurred speech or difficulty with word finding - NEW T - Time is BRAIN! Call 911 as soon as you recognize these symptoms Diet: Consume a regular diet rich in vegetables and lean protein such as chicken or fish. You should consume in a ratio of approximately 20% fats|40% carbohydrates|40%protein. Vegetables, sweet potatoes, brown rice or quinoa are examples of good carbohydrates. Chips, white bread, cookies and sweets/sugar are examples of bad carbohydrates. Limit your bad carbs, go wild with good carbs. "Life's Simple 7" Guidelines as per [place] [employer] These will help you reclaim your life after surgery and hatchery helper in your recovery, keeping in mind your restrictions. (1) Get Active. Physical activity can help people lose weight, control high blood pressure and cholesterol, feel emotionally better, and sleep better. (2) Control Cholesterol. Avoid a diet high in saturated fat, trans fat, & cholesterol. Limit whole milk & cream, ice cream, butter, egg yolks, processed meats (like sausage and hot dogs), and fatty meats. Choose healthy foods that are low in saturated fat, trans fat and cholesterol which include: Fruits and vegetables, fiber rich grain products (like whole grain pasta and brown rice), lean meat such as chicken, fish, nuts, seeds, and legumes. (3) Eat Better. Eat small portions. Shop at the grocery with a list and do not stray from it. Tips for a healthy diet include: Limit sodium intake to less than 1500mg daily, avoid prepackaged, processed, and fast foods, choose a diet rich in fruits, vegetables, and whole grain, high fiber foods, and limit saturated & cholesterol in your diet. (4) Manage Blood Pressure. If you have high blood pressure, you should have a cuff at home so that you can check your blood pressure regularly. Be sure you have a good cuff. An arm one is generally better than a wrist one. Bring the cuff to a doctor's appointment to validate that the measurements that your cuff are taking are accurate. Take your blood pressure twice daily when you are sitting down and relaxing. Record the numbers in a log and bring this log with you to your doctors' appointments. (5) Lose Weight if your BMI is above 25. A healthy BMI is between 19-25. To calculate Your BMI, you may use a Standard BMI Calculator on the NIH BMI website: <www.nhlbi.nih.gov/guidelines/obesity/BMI/bmicalc.htm>. Weigh oneself daily. If you are overweight, set a goal to lose weight. A pound a week loss if needed is a good target. (6) Reduce Blood Sugar. Limit foods and liquids with "added sugars." (Added sugars include sucrose, fructose, glucose, maltose, dextrose, high fructose corn syrup, corn syrup, concentrated fruit juice and honey). (7) Stop Smoking. If you smoke, quitting smoking is one of the best things that you can do for your health. Smoking increases your risk of heart attack, stroke, and peripheral vascular disease, which is a build-up of plaque in your arteries. Please discard all the cigarettes and lighters in your house. Have a plan for what you will do when you have the urge to smoke. Direct and second- hand smoke shortens your life as well as the lives of your family, friends and others around you. For your health and the health of those around you, please consider quitting! Proper Bending Body Mechanics: Maintain a wide stance with one foot slightly in front of the other. Keep your back straight. Bend utilizing the strength in your hips and knees. Do not bend at the waist. Maintain the lifted object at your waist-level close to your body. Avoid lifting weight that causes immediately pain or pain anywhere in the body afterwards. Smoking/Nicotine If there was ever one thing that you could do to increase your overall health, decrease your risk of cardiovascular problems by about 39% the second you make the choice, it is to STOP SMOKING. Your body's most instant gratification is the second you stop smoking. We have all heard the studies, read the articles but it is true, smoking is extremely bad for your overall health, and moreover it is detrimental to your bone health. Nicotine, IN ANY FORM, kills bone cells, prevents your body from healing fractures, and significantly prolongs healing after surgery. In spine surgery specifically, it increases your risk of not healing your bones to create a fusion and increases your risk of having a revision surgery due to this up to 60%. I know it is hard. I know it feels impossible. But there are ways. Take control of your life. We are here to help you through it. And when you are ready, ask us and we can direct you to help if you desire. Use the START Plan to Quit Smoking (please visit the Helpguide.org website listed below for more information): S = Set a quit date. Choose a date within the next 2 weeks, so you have enough time to prepare without losing your motivation to quit. If you mainly smoke at work, quit on the weekend, so you have a few days to adjust to the change. T = Tell family, friends, and co-workers that you plan to quit. Let your friends and family in on your plan to quit smoking and tell them you need their support and encouragement to stop. Look for a quit alexis who wants to stop smoking as well. You can help each other get through the rough times. A = Anticipate and plan for the challenges you'll face while quitting. Most people who begin smoking again do so within the first 3 months. You can help yourself make it through by preparing ahead for common challenges, such as nicotine withdrawal and cigarette cravings. R = Remove cigarettes and other tobacco products from your home, car, and work. Throw away all your cigarettes (no emergency pack!), lighters, ashtrays, and matches. Wash your clothes and freshen up anything that smells like smoke. Shampoo your car, clean your drapes and carpet, and steam your furniture. T = Talk to your doctor about getting help to quit. Your doctor can prescribe medication to help with withdrawal and suggest other alternatives. If you can't see a doctor, you can get many products over the counter at your local pharmacy or grocery store, including the nicotine patch, nicotine lozenges, and nicotine gum. Resources for Quitting Smoking: <https://www.[place].gov/documents/[facility]/Quit_Tobacco_Resources_for_patients_313 480_7.pdf> Supplementation: Take recommended dosages of Vitamin D and Calcium to help fortify your bones and help them to heal. See your health maintenance packet for dosages and recommended levels. DVT/VTE prophylaxis: You will be given compression stockings from the hospital. Wear these daily for the first two weeks after surgery. You may take them off at night. You may be prescribed a medication to help thin your blood. Take this as directed. If you are not prescribed this medication, early and frequent ambulation has been shown to be the best prophylaxis to deep vein thrombosis and sequelae related to this event. Procedures: Revision of wound and seroma evacuation lumbar spine Patient Condition at Discharge: Good Plan - Discharge Summary Discharge Rx Participant: Yes New Discharge Prescriptions: New cefaDROXiL [Duricef] 1 gm PO Q12HR 7 Days #14 tab Cyclobenzaprine [Flexeril] 10 mg PO HS PRN #30 tab PRN Reason: Spasms HYDROcodone/APAP 5-325MG [[place] 5-325] 1 tab PO Q4HR PRN 3 Days #18 tab PRN Reason: Pain Sennosides/Docusate Sodium [Senna Plus 8.6-50 mg Softgel] 1 each PO BID #20 capsule No Action Dextroamphetamine/Amphetamine [Adderall] 20 mg PO DAILY lamoTRIgine [LaMICtal] 100 mg PO QAM DULoxetine HCL [Cymbalta] 60 mg PO QAM QUEtiapine [SEROquel] 75 mg PO HS cefaDROXiL [Duricef] 500 mg PO Q12HR Discharge Medication List DULoxetine HCL [Cymbalta] 60 mg PO QAM 01/24/14 [History] Dextroamphetamine/Amphetamine [Adderall] 20 mg PO DAILY 01/24/14 [History] lamoTRIgine [LaMICtal] 100 mg PO QAM 01/24/14 [History] QUEtiapine [SEROquel] 75 mg PO HS 03/26/17 [History] cefaDROXiL [Duricef] 500 mg PO Q12HR 09/13/20 [History] Cyclobenzaprine [Flexeril] 10 mg PO HS PRN #30 tab 09/18/20 [Rx] HYDROcodone/APAP 5-325MG [[place] 5-325] 1 tab PO Q4HR PRN 3 Days #18 tab 09/18/20 [Rx] Sennosides/Docusate Sodium [Senna Plus 8.6-50 mg Softgel] 1 each PO BID #20 capsule 09/18/20 [Rx] cefaDROXiL [Duricef] 1 gm PO Q12HR 7 Days #14 tab 09/18/20 [Rx] Follow up Appointment(s)/Referral(s): Mike Telles DO [Doctor of Osteopathic Medicine] - 2 Weeks Activity/Diet/Wound Care/Special Instructions: Maintain wound Clean and dry Leave dressing in place for three days. Then change dressing daily. Keep clean and dry. May wash over incision. No soaking or submersion of incision. Blot dry with clean dry towel. Leave stitches in place Take pain meds as needed Take Antibiotics as directed Limit lifting bendig and twisting to less than 10 lbs. Discharge Disposition: HOME SELF-CARE
[2020-09-19 11:27] LABS: Basophils # (A) 0.04 X 10*3/uL (0.00-0.10); Basophils % (A) 0.4 %; Eosinophils # (A) 0.11 X 10*3/uL (0.04-0.35); Eosinophils % (A) 1.1 %; HCT 41.2 % (37.2-46.3); HGB 13.2 g/dL (12.0-15.0); Lymphocytes # (A) 1.91 X 10*3/uL (0.90-5.00); Lymphocytes % (A) 19.6 %; MCH 32.3 pg (27.0-32.0); MCV 100.7 fL (80.0-97.0); Mean Platelet Volume 9.6 fL (9.5-12.2); Monocytes # (A) 0.73 X 10*3/uL (0.20-1.00); Monocytes % (A) 7.5 %; Neutrophils % (A) 70.9 %; Platelet Count 345 X 10*3/uL (140-440); RBC 4.09 X 10*6/uL (4.10-5.20); RDW 13.5 % (11.5-14.5); WBC 9.74 X 10*3/uL (4.50-10.00)
[2020-09-19 11:55] LABS: African American GFR (CKD) 68.9 (60.0-200.0); Anion Gap 7.3 mmol/L (4.00-12.00); Calcium 9.8 mg/dL (8.7-10.3); Carbon Dioxide 27.7 mmol/L (21.6-31.8); Non-African American GFR(CKD) 59.5 (60.0-200.0); Potassium 4.9 mmol/L (3.5-5.5)
[2020-09-19 13:00] VITALS: BP 123/78; PULSE 57; RESP 17; TEMP 97.9
== END 2020-09-19 15:20 | disposition home or self-care (01) ==
LOC: OR 10:45 → 5NMEDONC 13:30 → OR 09-19 15:20
PROVIDERS: ATTEND Orthopaedic Surgery
DX: T81.30XA Disruption of wound, unspecified, initial encounter (principal); L76.34 Postprocedural seroma of skin and subcutaneous tissue following other procedure; Y83.8 Other surgical procedures as the cause of abnormal reaction of the patient, or of later complication, without mention of misadventure at the time of the procedure; L90.5 Scar conditions and fibrosis of skin; I48.91 Unspecified atrial fibrillation; E07.9 Disorder of thyroid, unspecified; M19.90 Unspecified osteoarthritis, unspecified site; Z79.890 Hormone replacement therapy; Z91.040 Latex allergy status; Z79.899 Other long term (current) drug therapy; Z98.84 Bariatric surgery status; Z98.1 Arthrodesis status; Z98.890 Other specified postprocedural states; Z82.49 Family history of ischemic heart disease and other diseases of the circulatory system; Z88.8 Allergy status to other drugs, medicaments and biological substances
CPT/HCPCS: 97162; 97165; 88304; 80048; 85025; 87070; 87205; 87075; 11042; 11045; J2250; J3370 ×2; J1100; J2370; J2710; J2405; J0690; J2001; J3010; J0330; J2704; J1170

== ENCOUNTER → 2021-04-30 | Outpatient (CLI) | payer MEDICARE, OTHER ==
--- NOTE | 2021-05-01 03:48 | MR ---
EXAMINATION TYPE: MR shoulder RT wo con DATE OF EXAM: 04/30/2021 COMPARISON: None HISTORY: RT shoulder pain into humerus, decreased range of motion Multiplanar multiecho imaging of the right shoulder without contrast. Exam limited somewhat by motion. There is some spurring at the AC joint and subacromial impingement. There is narrowing of the subacromial joint space. Biceps tendon is intact. There is increased fluid around the biceps tendon. There is mild increased joint fluid at the shoulder. Subscapularis tendon i s intact. The glenoid ap appear intact. I see no retraction of the supraspinatus tendon. There is some increased fluid in the subdeltoid bursa. Unfortunately the sagittal images are limited by signif icant motion. There is no evidence of a fracture. There is no evidence of focal bone destruction. IMPRESSION: Subacromial joint space narrowing and impingement. No definite rotator cuff tear. No retraction. Shoulder joint effusion and subdeltoid effusion consistent with bursitis and synovitis.
== END | disposition home or self-care (01) ==
LOC: RADMRIMAIN 16:47
PROVIDERS: ATTEND Orthopaedic Surgery
DX: M25.811 Other specified joint disorders, right shoulder (principal); M25.411 Effusion, right shoulder